=== PATIENT | male | born 1940 | race Caucasian/White ===

== ENCOUNTER 2018-03-17 12:44 | Inpatient (IN) | payer MEDICARE, OTHER ==
[~2018-03-17] VITALS: Ht 180.3 cm; Wt 62.8 kg
[2018-03-17 15:53] VITALS: BP 187/77; PULSE 57; RESP 17; TEMP 97.8; O2SAT 96
[2018-03-17] MEDS ORDERED: ASPI-516 CHEW (17:11)
[2018-03-17] MEDS ORDERED: GABA300C5 PO (17:14)
[2018-03-17] MEDS ORDERED: METO25TA3 PO (17:16)
[2018-03-17] MEDS ORDERED: LISI10TA3 PO (17:18)
[2018-03-17] MEDS ORDERED: NICO21DI2 T-DERMAL (17:19)
[2018-03-17] MEDS ORDERED: METF500T PO (17:19)
[2018-03-17] MEDS ORDERED: ASPI1POW (17:20)
[2018-03-17] MEDS ORDERED: diphenhydrAMINE HCL 50 MG CAP PO PRN (17:45)
[2018-03-17] MEDS ORDERED: MAGNESIUM HYDROXIDE SUSP 30 ML CUP PO PRN (17:45)
[2018-03-17] MEDS ORDERED: PILL SPLITTER OTHER PRN (17:45)
[2018-03-17] MEDS ORDERED: LORazepam 2 MG/ML VIAL IM PRN (17:45)
[2018-03-17] MEDS ORDERED: LORazepam 0.5 MG TAB PO PRN (17:45)
[2018-03-17] MEDS ORDERED: ALUMINUM/MAGNESIUM/SIMETH 30 ML CUP PO PRN (17:45)
[2018-03-17 21:00] VITALS: BP 181/77; PULSE 58; RESP 20
[2018-03-17] MEDS: METOPROLOL TARTRATE 25 MG TAB PO SCH (21:17)
[2018-03-17] MEDS: GABAPENTIN 300 MG CAP PO SCH (21:17)
[2018-03-17 23:00] VITALS: BP 146/78; PULSE 60; RESP 18
[2018-03-18 04:00] VITALS: BP 143/63; PULSE 55; RESP 18; TEMP 98; O2SAT 95
[2018-03-18 07:29] LABS: BICARBONATE 28.6 MEQ/L (21.0-32.0); BLOOD UREA NITROGEN 21 MG/DL (7-18); CALCIUM 9.2 MG/DL (8.5-10.1); CHLORIDE 106 MEQ/L (98-107); CHOLESTEROL 223 MG/DL (120-200); CREATININE 1.54 MG/DL (0.60-1.30); GLOMERULAR FILTRATION RATE 44 ML/MIN (>89); GLUCOSE,RANDOM 79 MG/DL (74-106); SODIUM (NA) 142 MEQ/L (136-145); TRIGLYCERIDES 152 MG/DL (42-150)
[2018-03-18 07:39] LABS: CHOLESTEROL/ HDL RATIO 6.31 RATIO; HDL CHOLESTEROL 35.3 MG/DL (40.0-60.0); LDL CHOLESTEROL 157 MG/DL (0-99)
[2018-03-18] MEDS ORDERED: metFORMIN HCL 500 MG TAB PO SCH (09:00)
[2018-03-18] MEDS: LISINOPRIL 10 MG TAB PO SCH (09:36)
[2018-03-18] MEDS: GABAPENTIN 300 MG CAP PO SCH ×2 (09:36→21:24)
[2018-03-18] MEDS: ASPIRIN 81 MG CHEW TAB CHEW SCH (09:36)
[2018-03-18] MEDS: METOPROLOL TARTRATE 25 MG TAB PO SCH ×2 (09:36→21:00)
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
[2018-03-18] MEDS ORDERED: DEXTROSE 50% IN WATER 50 ML VIAL(D50) IV PUSH PRN (12:15)
[2018-03-18] MEDS ORDERED: GLUCAGON 1 MG/ML VIAL OTHER PRN (12:15)
--- NOTE | 2018-03-18 14:31 | PD.TTN ---
Patient Problems 1. Discharge planning 2. Medication compliance 3. Knowledge deficit 4. Lack of coping skills Progress Toward Goals Provider Present: Dr. Staci Mcknight Provider Input: New Admission Nurse(s) Present: JANETH Amos Nurse(s) Input: Appropiate with staff Psychiatric Counselors Present: Radha Marsh LCSW, Suha Tirado, [facility], [facility], Jagjit Mcdermott Jr., [facility] Psych Therapist Input: Homocidal/ Suicidal Group Spec/RT/OT/DANIEL Present: ALONDRA Pineda Group Spec/RT/OT/DANIEL Input: New Admission Discharge Plan To be determined Documentation Scribe: Milagro Franks March 18, 2018 14:31
[2018-03-18 16:14] LABS: HEMOGLOBIN A1C 5.8 % (4.3-6.0)
[2018-03-18] MEDS: INSULIN ASPART SUPPLEMENTAL SCALE SQ SCH ×2 (17:00→21:00)
--- NOTE | 2018-03-18 17:02 | EKG ---
Date Performed: 03/18/2018 Time Performed: 14:48:33 PTAGE: 77 years EKG: SINUS BRADYCARDIA BORDERLINE ECG NO PREVIOUS TRACING DOCTOR: Erasmo Rizo Interpretating Date/Time 03/18/2018 17:01:24
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
[2018-03-18 19:03] LABS: FOLATE 19.3 NG/ML (3.1-17.5)
[2018-03-18 20:13] LABS: ALBUMIN 4.2 GM/DL (3.4-5.0); DIRECT BILIRUBIN ADULT 0.1 MG/DL (0.0-0.2)
[2018-03-18 20:14] LABS: INDIRECT BILIRUBIN 0.4 MG/DL (0.0-0.8); TOTAL BILIRUBIN ADULT 0.5 MG/DL (0.2-1.0); TOTAL PROTEIN 8.1 GM/DL (6.4-8.2)
--- NOTE | 2018-03-18 21:13 | RADRPT ---
EXAM DATE/TIME: 03/18/2018 20:17 [place] COMPARISON: No previous studies available for comparison. INDICATIONS : Altered mental status. RADIATION DOSE: 45.96 CTDIvol (mGy) MEDICAL HISTORY : Dementia. SURGICAL HISTORY : None. ENCOUNTER: Initial ACUITY: 1 day PAIN SCALE: 0/10 LOCATION: cranial TECHNIQUE: Multiple contiguous axial images were obtained of the head. Using automated exposure control and adj ustment of the mA and/or kV according to patient size, radiation dose was kept as low as reasonably a chievable to obtain optimal diagnostic quality images. DICOM format image data is available electro nically for review and comparison. FINDINGS: CEREBRUM: The ventricles are normal for age. There is an old lacunar infarct at the right caudate head. There is decreased density in the periventricular white matter. No evidence of midline shift, mass lesion, hemorrhage or acute infarction. No extra-axial fluid collections are seen. POSTERIOR FOSSA: The cerebellum and brainstem are intact. The 4th ventricle is midline. The cerebellopontine angle i s unremarkable. EXTRACRANIAL: The visualized portion of the orbits is intact. SKULL: The calvaria is intact. No evidence of skull fracture. CONCLUSION: 1. No acute intracranial abnormality seen. 2. 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 3. Suspected small vessel ischemic change in the white matter. Dereck Kaufman MD on March 18, 2018 at 21:09 Board Certified Radiologist. This report was verified electronically.
[2018-03-18 21:15] VITALS: BP 137/60; PULSE 50; RESP 14
[2018-03-19 02:03] VITALS: BP 137/60; PULSE 50; RESP 14
[2018-03-19 06:34] VITALS: BP 156/67; PULSE 55; RESP 18; TEMP 97.8; O2SAT 97
[2018-03-19] MEDS: INSULIN ASPART SUPPLEMENTAL SCALE SQ SCH ×2 (08:00→12:00)
[2018-03-19] MEDS: GABAPENTIN 300 MG CAP PO SCH ×2 (08:45→20:33)
[2018-03-19] MEDS: METOPROLOL TARTRATE 25 MG TAB PO SCH ×2 (08:45→20:33)
[2018-03-19] MEDS: LISINOPRIL 10 MG TAB PO SCH (08:45)
[2018-03-19] MEDS: ASPIRIN 81 MG CHEW TAB CHEW SCH (08:45)
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
--- NOTE | 2018-03-19 15:27 | HHI.PR ---
Subjective Remarks Follow up on patient with HTN, bradycardia, HLD. Patient seen and examined. Patient denies any acute medical complaints. Wants to know when he can go home. Denies any fever or chills. Denies any chest pain or dyspnea. Denies any N/V or abdominal pain. Denies any dysuria or diarrhea. Discussed with nursing staff, no acute issues noted. Objective Vitals Vital Signs Date Time Temp Pulse Resp B/P (MAP) Pulse Ox O2 Delivery O2 Flow Rate FiO2 03/19/18 06:34 97.8 55 18 156/67 (96) 97 03/19/18 02:03 03/19/18 02:03 50 14 137/60 (85) 03/18/18 21:15 50 14 137/60 (85) 03/18/18 21:15 50 14 137/60 (85) 03/18/18 21:15 50 14 137/60 (85) I/O 03/18/18 03/18/18 03/18/18 03/19/18 03/19/18 03/19/18 07:00 15:00 23:00 07:00 15:00 23:00 Intake Total 240 ml 240 ml Balance 240 ml 240 ml Intake Oral 240 ml 240 ml Result Diagram: 03/18/18 0559 Imaging Last Impressions Head CT 03/18/18 0000 Signed Impressions: Service Date/Time: Sunday, March 18, 2018 20:17 - CONCLUSION: 1. No acute intracranial abnormality seen. 2. 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 3. Suspected small vessel ischemic change in the white matter. Dereck Kaufman MD Objective Remarks GENERAL: This is a well-nourished, well-developed elderly male patient, in no apparent distress. Awake and alert. Hard of hearing. Sitting in chair in hallway. SKIN: Warm and dry. No rash. HEAD: Atraumatic. Normocephalic. EYES: Extraocular motions intact. No scleral icterus. No injection or drainage. ENT: Nose without bleeding or purulent drainage. +hearing aides both ears. Airway patent. MMM. NECK: Trachea midline. CARDIOVASCULAR: Regular rate and rhythm without murmurs, gallops, or rubs. RESPIRATORY: Nonlabored. Clear to auscultation. Breath sounds equal bilaterally. No wheezes, rales, or rhonchi. GASTROINTESTINAL: Abdomen soft, non-tender, nondistended. MUSCULOSKELETAL: Extremities without clubbing, cyanosis, or edema. No calf tenderness. NEUROLOGICAL: Awake and alert. Cranial nerves II through XII grossly intact. Motor and sensory grossly within normal limits. Normal speech. PSYCHIATRIC: Calm and cooperative Medications and IVs Current Medications Medications (Trade) Dose Ordered Sig/Tasia Route Start Time Stop Time Status Last Admin (Tylenol) 650 mg Q4H PRN PO 03/17/18 17:45 (Milk Of Magnesia Liq) 30 ml DAILY PRN PO 03/17/18 17:45 (Mag-Al Plus Susp Liq) 30 ml Q6H PRN PO 03/17/18 17:45 (Aspirin Chew) 81 mg DAILY CHEW 03/18/18 09:00 03/19/18 08:45 (Neurontin) 300 mg BID PO 03/17/18 21:00 03/19/18 08:45 (Prinivil) 10 mg DAILY PO 03/18/18 09:00 03/19/18 08:45 (Glucophage) 500 mg DAILY PO 03/18/18 09:00 Future Hold (Lopressor) 12.5 mg BID PO 03/17/18 21:00 03/19/18 08:45 (Pill Splitter) 1 ea UNSCH PRN OTHER 03/17/18 17:45 (Melatonin) 5 mg HS PRN PO 03/18/18 21:00 (D50w (Vial) Inj) 50 ml UNSCH PRN IV PUSH 03/18/18 12:15 (Glucagon Inj) 1 mg UNSCH PRN OTHER 03/18/18 12:15 (NovoLOG SUPPLEMENTAL SCALE) 1 ACHS SLIDING SCALE SQ 03/18/18 17:00 (Lipitor) 40 mg DAILY PO 03/20/18 09:00 (Remeron) 7.5 mg HS PO 03/19/18 21:00 A/P Assessment and Plan 77yo male with PMHX significant for dementia, HTN, HLD and DM who was transferred from [facility] under a Rg act alleging that he threatened to shoot himself with a gun. Patient has been admitted to inpatient psychiatry and hospitalist services have been consulted for medical management. Dementia with behavioral disturbance -Management per psychiatric team Hypertension -continue on Lisinopril -may need to change antihypertensive depending on kidney fxn -monitor BP Bradycardia, mild, asymptomatic EKG with sinus eduardo, QTc 447 -TSH WNL -continue on Lopressor with hold parameters HLD TG 152, Chol 223, LDL 157 -LFTs WNL. Discussed initiation of statin therapy. Patient agreeable. Begin Lipitor 40mg daily -patient will need to follow up with PCP to have lipid profile redrawn in 6- 8 weeks ?DM, patient states he was previously on Metformin but was taken off HgbA1c 5.8 -blood sugars running mid to low 100s off of Metformin -discontinue Metformin -d/c accucheks and ISS ?RUBENS on CKD No baseline labs for comparison Creatinine 1.54, GFR 44, BUN 21 -avoid nephrotoxic agents. -follow trend -encourage po intake -repeat BMP in am DVT prophylaxis -patient is ambulatory Patient appears stable from hospitalist standpoint. Will sign off. Please reconsult [facility] if needed. Barby Delgado March 19, 2018 15:27
[2018-03-19 18:10] VITALS: BP 137/63; PULSE 50; RESP 17; TEMP 97.8; O2SAT 96
[2018-03-19 18:29] LABS: BICARBONATE 30.2 MEQ/L (21.0-32.0); CREATININE 1.67 MG/DL (0.60-1.30)
[2018-03-19] MEDS: ACETAMINOPHEN 325 MG TAB PO PRN (20:32)
[2018-03-19] MEDS: MIRTAZAPINE 15 MG TAB PO SCH (20:33)
[2018-03-20 05:52] VITALS: BP 111/55; PULSE 60; RESP 16; TEMP 97.7; O2SAT 97
[2018-03-20 08:34] VITALS: BP 137/56; PULSE 50; O2SAT 97
[2018-03-20] MEDS: ATORVASTATIN 40 MG TAB PO SCH (09:18)
[2018-03-20] MEDS: METOPROLOL TARTRATE 25 MG TAB PO SCH ×2 (09:18→21:27)
[2018-03-20] MEDS: ASPIRIN 81 MG CHEW TAB CHEW SCH (09:18)
[2018-03-20] MEDS: GABAPENTIN 300 MG CAP PO SCH ×2 (09:18→21:28)
[2018-03-20] MEDS: LISINOPRIL 10 MG TAB PO SCH (09:19)
--- NOTE | 2018-03-20 12:26 | PD.PSY.CON ---
Provisional Diagnosis Admission Date March 17, 2018 at 15:46 [place] I. 1. Dementia, likely of the Alzheimer type, with behavioral disturbance 2. Rule out comorbid depressive disorder or perhaps adjustment reaction with depressed mood [place] II. Deferred History of Present Illness Service Psychiatry Consult Requested By Psychiatry Reason for Consult For second opinion Primary Care Physician Unknown HPI Mr. Jones is a 77-year-old male with a history of dementia who presents in transfer from [facility] under a Rg act alleging that he threatened to shoot himself with a gun. Documentation from outside hospital reviewed. Reviewing the electronic medical record, I note that this is patient' s first visit to [facility].Patient seen and examined. Chart reviewed. Case discussed with nursing staff. Patient noted to have been no behavioral problem overnight. On my examination today, patient presents as confused. MOCA is 13/ 30 with prominent deficits in delayed recall, executive function, and language. On my examination today, patient reports that he pulled out a gun in the context of an argument with his . He denies threatening to shoot himself with it. He tells me that he "brought it out to see if she would calm down." He says that they were arguing because he believes that his is financially exploiting him. He believes that she has taken on the order of $1,000 within the last year. Unclear if this concern is reality based. I can elicit no delusions or potential delusions otherwise. He denies AVH. He denies suicidal or homicidal ideation. He does admit to feeling somewhat depressed lately secondary to his concerns about his . Along with low mood he describes some sleep and appetite disturbance as well as some feelings of hopelessness. I can elicit no hypomanic or manic symptoms. Remainder of the psychiatric ROS is negative. No acute physical complaints. The patient is a 69-year-old man, domiciled his , with psychiatric history of dementia with behavioral disturbances, previous psychiatric hospitalizations, he denies suicidal attempts, hospitalized on the Rg act due to a alleged suicidal ideation with a plan of shooting himself with a gun. Patient consulted to me for second opinion. On psychiatric evaluation today the patient is calm, cooperative. Patient reports that he does not really understand what is the reason he is here. He reports good mood , denies depression, he denies suicidal enemas ideation, he denies visual and auditory hallucinations. Patient is quite confused, just partially oriented in time and place. No behavioral dysregulation, agitation, aggressive behavior observed or reported. Compliant with medications, no significant side effects. Past Family Social History Coded Allergies: iodine (Verified Allergy, Unknown, 03/17/18) Reported Medications Aspirin/Caffeine (Bc Arthritis Powder Packet) 1,000 Mg-65 Mg Powd.pack, 1000 03/17/18 Nicotine Patch (Nicotine Patch) 21 Mg/24 Hr Patch, 21 MG T-DERMAL DAILY for Smoking Cessation, #30 PATCH 0 Refills 03/17/18 Metformin (Metformin) 500 Mg Tab, 500 MG PO DAILY for Blood Sugar Management, # 30 TAB 0 Refills With a meal 03/17/18 Lisinopril (Lisinopril) 10 Mg Tab, 10 MG PO DAILY, #30 TAB 0 Refills 03/17/18 Metoprolol Tartrate (Metoprolol Tartrate) 25 Mg Tab, 12.5 MG PO BID, #30 TAB 0 Refills 03/17/18 Gabapentin (Gabapentin) 300 Mg Cap, 300 MG PO BID, #60 CAP 0 Refills 03/17/18 Aspirin (Aspirin) 81 Mg Chew, 81 MG CHEW DAILY, TAB 0 Refills 03/17/18 Current Medications Medications (Trade) Dose Ordered Sig/Tasia Route Start Time Stop Time Status Last Admin (Tylenol) 650 mg Q4H PRN PO 03/17/18 17:45 03/19/18 20:32 (Milk Of Magnesia Liq) 30 ml DAILY PRN PO 03/17/18 17:45 (Mag-Al Plus Susp Liq) 30 ml Q6H PRN PO 03/17/18 17:45 (Aspirin Chew) 81 mg DAILY CHEW 03/18/18 09:00 03/20/18 09:18 (Neurontin) 300 mg BID PO 03/17/18 21:00 03/20/18 09:18 (Prinivil) 10 mg DAILY PO 03/18/18 09:00 03/20/18 09:19 (Lopressor) 12.5 mg BID PO 03/17/18 21:00 03/20/18 09:18 (Pill Splitter) 1 ea UNSCH PRN OTHER 03/17/18 17:45 (Melatonin) 5 mg HS PRN PO 03/18/18 21:00 (D50w (Vial) Inj) 50 ml UNSCH PRN IV PUSH 03/18/18 12:15 (Glucagon Inj) 1 mg UNSCH PRN OTHER 03/18/18 12:15 (Lipitor) 40 mg DAILY PO 03/20/18 09:00 03/20/18 09:18 (Remeron) 7.5 mg HS PO 03/19/18 21:00 03/19/18 20:33 Patient's Strengths (min. 2) In a monitored setting. Verbally fluent. Physical Exam Vital Signs Vital Signs Date Time Temp Pulse Resp B/P (MAP) Pulse Ox O2 Delivery O2 Flow Rate FiO2 03/20/18 08:34 50 137/56 (83) 97 03/20/18 05:52 97.7 16 I/O 03/20/18 03/20/18 03/21/18 08:00 16:00 00:00 Intake Total 0 ml Balance 0 ml Lab Results Test 03/19/18 17:14 Blood Urea Nitrogen 38 MG/DL Creatinine 1.67 MG/DL Random Glucose 109 MG/DL Calcium Level 9.0 MG/DL Sodium Level 139 MEQ/L Potassium Level 4.3 MEQ/L Chloride Level 100 MEQ/L Carbon Dioxide Level 30.2 MEQ/L Anion Gap 9 MEQ/L Estimat Glomerular Filtration Rate 40 ML/MIN Mental Status Examination Appearance: Appropriate Consciousness: Alert Orientation: Person, Place (At least) Motor Activity: Normal gait, Other (No motor abnormalities noted) Speech: Unremarkable Language: Adequate Fund of Knowledge: Inadequate Attention and Concentration: Other (fair) Memory: Impaired Mood: Other (Dysphoric) Affect: Other (Tearful) Thought Process & Associations: Circumstantial Thought Content: Preoccupations Hallucination Type: None Delusion Type: None Suicidal Ideation: No Homicidal Ideation: No Insight: Poor Judgment: Poor Assessment & Plan Problem List: (1) Dementia of Alzheimer's type with behavioral disturbance ICD Codes: G30.9 - Alzheimer's disease, unspecified; F02.81 - Dementia in other diseases classified elsewhere with behavioral disturbance Assessment & Plan: I have seen and examined this patient, reviewed documentation, I agree and concur with Dr. Mcknight assessment and plan. (2) Depressive disorder ICD Codes: F32.9 - Major depressive disorder, single episode, unspecified Assessment & Plan Estimated LOS: days Request HC Surrog/Guard Advoc?: Yes Problem Qualifiers (1) Dementia of Alzheimer's type with behavioral disturbance: Qualified Codes: G30.8 - Other Alzheimer's disease; F02.81 - Dementia in other diseases classified elsewhere with behavioral disturbance Ryan Obrien MD March 20, 2018 12:26
--- NOTE | 2018-03-20 12:40 | HHI.PYPN ---
Subjective Chief Complaint: Dementia with behavioral disturbance Remarks Patient seen and examined with nurse. Chart reviewed. Case discussed with nursing staff. No behavioral issues noted overnight. Case discussed with counselor. On my examination today, patient's affect remains a little dysphoric and his general demeanor fairly downcast. Mild psychomotor slowing noted. Sleep reportedly somewhat poor overnight. He remains confused as at recent baseline. No SI or HI voiced. No side effects from medications. No physical complaints. Review of Systems ROS Limitations: Poor Historian Except as stated in HPI: all other systems reviewed are Neg Mental Status Examination Appearance: Appropriate Consciousness: Alert Orientation: Person Motor Activity: Other (No abnormal motor movements noted) Speech: Unremarkable Language: Adequate Fund of Knowledge: Inadequate Attention and Concentration: Other (fair) Memory: Impaired Mood: Other (Remains dysphoric) Affect: Other (Restricted) Thought Process & Associations: Circumstantial Thought Content: Preoccupations Hallucination Type: None Delusion Type: None Suicidal Ideation: No (No SI voiced) Homicidal Ideation: No (No HI voiced) Insight: Poor Judgment: Poor Results Labs Test 03/19/18 17:14 Blood Urea Nitrogen 38 MG/DL Creatinine 1.67 MG/DL Random Glucose 109 MG/DL Calcium Level 9.0 MG/DL Sodium Level 139 MEQ/L Potassium Level 4.3 MEQ/L Chloride Level 100 MEQ/L Carbon Dioxide Level 30.2 MEQ/L Anion Gap 9 MEQ/L Estimat Glomerular Filtration Rate 40 ML/MIN Labs reviewed. GFR stable. Mild hyperammonemia, likely of no clinical consequence. Vitamin D level is somewhat low. Last Impressions Head CT 03/18/18 0000 Signed Impressions: Service Date/Time: Sunday, March 18, 2018 20:17 - CONCLUSION: 1. No acute intracranial abnormality seen. 2. 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 3. Suspected small vessel ischemic change in the white matter. Dereck Kaufman MD Vitals/IOs Vital Signs Date Time Temp Pulse Resp B/P (MAP) Pulse Ox O2 Delivery O2 Flow Rate FiO2 03/20/18 08:34 50 137/56 (83) 97 03/20/18 05:52 97.7 16 Intake and Output 03/20/18 03/20/18 03/21/18 08:00 16:00 00:00 Intake Total 0 ml Balance 0 ml Assessment & Plan Problem List: (1) Dementia of Alzheimer's type with behavioral disturbance ICD Codes: G30.9 - Alzheimer's disease, unspecified; F02.81 - Dementia in other diseases classified elsewhere with behavioral disturbance (2) Depressive disorder ICD Codes: F32.9 - Major depressive disorder, single episode, unspecified Assessment & Plan Continue Remeron as ordered. To consider further titration of this agent to target dysphoria. Continue to monitor on the inpatient unit. Continue other medications and care as ordered. Justification for Cont. Inpt. Risk for decompensation in less restrictive environment. Discharge Planning Counselor to work on placement Request HC Surrog/Guard Advoc?: Yes Problem Qualifiers (1) Dementia of Alzheimer's type with behavioral disturbance: Qualified Codes: G30.8 - Other Alzheimer's disease; F02.81 - Dementia in other diseases classified elsewhere with behavioral disturbance João Mcknight MD March 20, 2018 12:40
[2018-03-20] MEDS: MIRTAZAPINE 15 MG TAB PO SCH (21:28)
[2018-03-21 05:25] VITALS: BP 149/66; PULSE 45; RESP 16; TEMP 98.2; O2SAT 96
[2018-03-21 06:13] VITALS: BP 130/66; PULSE 68
[2018-03-21 08:21] VITALS: BP 112/52; PULSE 54
[2018-03-21] MEDS: LISINOPRIL 10 MG TAB PO SCH (08:22)
[2018-03-21] MEDS: METOPROLOL TARTRATE 25 MG TAB PO SCH ×2 (08:22→20:59)
[2018-03-21] MEDS: CHOLECALCIFEROL (VIT D3) 1000 UNIT TAB PO SCH (09:33)
[2018-03-21] MEDS: ASPIRIN 81 MG CHEW TAB CHEW SCH (09:33)
[2018-03-21] MEDS: GABAPENTIN 300 MG CAP PO SCH ×2 (09:33→21:00)
[2018-03-21] MEDS: ATORVASTATIN 40 MG TAB PO SCH (09:33)
--- NOTE | 2018-03-21 11:24 | HHI.PYPN ---
Subjective Chief Complaint: Dementia with behavioral disturbance Remarks Patient seen today in coverage for Dr. Mcknight, patient seen with nurse Ese, chart reviewed, patient compliant medications, patient calm pleasant with me no behavior problems, diffusely confused and disoriented. His functioning on his inability to contact his . For now continue treatment no change Review of Systems Except as stated in HPI: all other systems reviewed are Neg Mental Status Examination Appearance: Appropriate Consciousness: Alert Orientation: Person Motor Activity: Other (No abnormal motor movements noted) Speech: Unremarkable Language: Adequate Fund of Knowledge: Inadequate Attention and Concentration: Other (fair) Memory: Impaired Mood: Other (Remains dysphoric) Affect: Other (Restricted) Thought Process & Associations: Circumstantial Thought Content: Preoccupations Hallucination Type: None Delusion Type: None Suicidal Ideation: No (No SI voiced) Homicidal Ideation: No (No HI voiced) Insight: Poor Judgment: Poor Results Vitals/IOs Vital Signs Date Time Temp Pulse Resp B/P (MAP) Pulse Ox O2 Delivery O2 Flow Rate FiO2 03/21/18 08:21 54 112/52 (72) 03/21/18 05:25 98.2 16 96 Assessment & Plan Problem List: (1) Dementia of Alzheimer's type with behavioral disturbance ICD Codes: G30.9 - Alzheimer's disease, unspecified; F02.81 - Dementia in other diseases classified elsewhere with behavioral disturbance (2) Depressive disorder ICD Codes: F32.9 - Major depressive disorder, single episode, unspecified Assessment & Plan Estimated LOS: days patient continues diffusely confused and disoriented to the behavior problems, is focusing somewhat on his inability to reach his . For now continue treatment Justification for Cont. Inpt. At this time patient would decompensate a place to the lower level of care Discharge Planning To be determined Request HC Surrog/Guard Advoc?: Yes Problem Qualifiers (1) Dementia of Alzheimer's type with behavioral disturbance: Qualified Codes: G30.8 - Other Alzheimer's disease; F02.81 - Dementia in other diseases classified elsewhere with behavioral disturbance Dereck Yusuf MD March 21, 2018 11:24
[2018-03-21 20:55] VITALS: BP 128/59; PULSE 51
[2018-03-21] MEDS: MIRTAZAPINE 15 MG TAB PO SCH (21:00)
[2018-03-22 05:48] VITALS: BP 176/75; PULSE 50; RESP 16; TEMP 97.4; O2SAT 95
[2018-03-22 06:10] VITALS: BP_SYST 140; BP_SYST 158; BP_DIAS 70; BP_DIAS 78; PULSE 56; PULSE 98
[2018-03-22] MEDS: CHOLECALCIFEROL (VIT D3) 1000 UNIT TAB PO SCH (09:06)
[2018-03-22] MEDS: LISINOPRIL 10 MG TAB PO SCH (09:06)
[2018-03-22] MEDS: METOPROLOL TARTRATE 25 MG TAB PO SCH ×2 (09:06→20:54)
[2018-03-22] MEDS: GABAPENTIN 300 MG CAP PO SCH ×3 (09:06→20:53)
[2018-03-22] MEDS: ASPIRIN 81 MG CHEW TAB CHEW SCH (09:06)
[2018-03-22] MEDS: ATORVASTATIN 40 MG TAB PO SCH (09:06)
--- NOTE | 2018-03-22 12:13 | HHI.PYPN ---
Subjective Chief Complaint: Dementia with behavioral disturbance Remarks Patient was seen and case discussed with nursing. Patient is behaving well on the unit. Interview limited because he is hard of hearing. He is asking about discharge. When asked about his mood he takes his hand and pointed downwards. He denies suicidal or homicidal ideation intent or plan. Compliant with medications and behaving well on the unit Mental Status Examination Appearance: Appropriate Consciousness: Alert Orientation: Person, Place Motor Activity: Other (No abnormal motor movements noted) Speech: Unremarkable Language: Adequate Fund of Knowledge: Inadequate Attention and Concentration: Other (fair) Memory: Impaired Mood: Sad Affect: Other (Restricted) Thought Process & Associations: Circumstantial Thought Content: Preoccupations Hallucination Type: None Delusion Type: None Suicidal Ideation: No (No SI voiced) Homicidal Ideation: No (No HI voiced) Insight: Poor Judgment: Poor Results Vitals/IOs Vital Signs Date Time Temp Pulse Resp B/P (MAP) Pulse Ox O2 Delivery O2 Flow Rate FiO2 03/22/18 06:10 56 158/70 (99) 03/22/18 05:48 97.4 16 95 Intake and Output 03/22/18 03/22/18 03/23/18 08:00 16:00 00:00 Intake Total 1260 ml Balance 1260 ml Assessment & Plan Problem List: (1) Dementia of Alzheimer's type with behavioral disturbance ICD Codes: G30.9 - Alzheimer's disease, unspecified; F02.81 - Dementia in other diseases classified elsewhere with behavioral disturbance (2) Depressive disorder ICD Codes: F32.9 - Major depressive disorder, single episode, unspecified Assessment & Plan Continue current treatment plan Justification for Cont. Inpt. Patient would decompensate in a less restrictive setting Request HC Surrog/Guard Advoc?: Yes Problem Qualifiers (1) Dementia of Alzheimer's type with behavioral disturbance: Qualified Codes: G30.8 - Other Alzheimer's disease; F02.81 - Dementia in other diseases classified elsewhere with behavioral disturbance Sanjeev Grace DO March 22, 2018 12:13
[2018-03-22] MEDS: MIRTAZAPINE 15 MG TAB PO SCH (20:51)
[2018-03-22 20:56] VITALS: BP 143/60; PULSE 48; PULSE 60; RESP 22; TEMP 98.4; O2SAT 96
[2018-03-23 05:43] VITALS: BP 135/61; PULSE 46; RESP 16; TEMP 96.9; O2SAT 94
[2018-03-23 06:52] VITALS: BP 136/61; PULSE 52
[2018-03-23] MEDS: GABAPENTIN 300 MG CAP PO SCH ×2 (08:55→20:53)
[2018-03-23] MEDS: ASPIRIN 81 MG CHEW TAB CHEW SCH (08:55)
[2018-03-23] MEDS: CHOLECALCIFEROL (VIT D3) 1000 UNIT TAB PO SCH (08:55)
[2018-03-23] MEDS: LISINOPRIL 10 MG TAB PO SCH (08:55)
[2018-03-23] MEDS: METOPROLOL TARTRATE 25 MG TAB PO SCH ×2 (08:55→20:54)
[2018-03-23] MEDS: ATORVASTATIN 40 MG TAB PO SCH (08:56)
--- NOTE | 2018-03-23 11:34 | HHI.PYPN ---
Subjective Chief Complaint: Dementia with behavioral disturbance Remarks Patient was seen and case discussed with nursing. Interview limited by patient' s being hard of hearing. Patient said he was hearing voices to "get out of here." Spending most of his time in bed, internally preoccupied. No aggressive behavior. He is compliant with his medications. Metoprolol was held by medicine because of bradycardia Mental Status Examination Appearance: Appropriate Consciousness: Alert Orientation: Person, Place Motor Activity: Other (No abnormal motor movements noted) Speech: Unremarkable Language: Adequate Fund of Knowledge: Inadequate Attention and Concentration: Other (fair) Memory: Impaired Mood: Sad Affect: Other (Restricted) Thought Process & Associations: Circumstantial Thought Content: Preoccupations Hallucination Type: None Delusion Type: None Suicidal Ideation: No (No SI voiced) Homicidal Ideation: No (No HI voiced) Insight: Poor Judgment: Poor Results Vitals/IOs Vital Signs Date Time Temp Pulse Resp B/P (MAP) Pulse Ox O2 Delivery O2 Flow Rate FiO2 03/23/18 06:52 52 136/61 (86) 03/23/18 05:43 96.9 16 94 Intake and Output 03/23/18 03/23/18 03/24/18 08:00 16:00 00:00 Intake Total 0 ml Balance 0 ml Assessment & Plan Problem List: (1) Dementia of Alzheimer's type with behavioral disturbance ICD Codes: G30.9 - Alzheimer's disease, unspecified; F02.81 - Dementia in other diseases classified elsewhere with behavioral disturbance (2) Depressive disorder ICD Codes: F32.9 - Major depressive disorder, single episode, unspecified Assessment & Plan Continue current treatment plan Justification for Cont. Inpt. Patient would decompensate in a less restrictive setting Request HC Surrog/Guard Advoc?: Yes Problem Qualifiers (1) Dementia of Alzheimer's type with behavioral disturbance: Qualified Codes: G30.8 - Other Alzheimer's disease; F02.81 - Dementia in other diseases classified elsewhere with behavioral disturbance Sanjeev Grace DO March 23, 2018 11:34
[2018-03-23 17:53] VITALS: BP 127/84; PULSE 48; RESP 16; TEMP 97.9; O2SAT 99
[2018-03-23 20:30] VITALS: BP 146/70; PULSE 50
[2018-03-23] MEDS: MIRTAZAPINE 15 MG TAB PO SCH (20:53)
[2018-03-24 06:13] VITALS: BP 109/53; PULSE 46; RESP 18; TEMP 97.6; O2SAT 97
[2018-03-24] MEDS: METOPROLOL TARTRATE 25 MG TAB PO SCH (08:39)
[2018-03-24] MEDS: ATORVASTATIN 40 MG TAB PO SCH (08:40)
[2018-03-24] MEDS: CHOLECALCIFEROL (VIT D3) 1000 UNIT TAB PO SCH (08:41)
[2018-03-24] MEDS: LISINOPRIL 10 MG TAB PO SCH (08:41)
[2018-03-24] MEDS: GABAPENTIN 300 MG CAP PO SCH ×2 (08:41→20:54)
[2018-03-24] MEDS: ASPIRIN 81 MG CHEW TAB CHEW SCH (08:41)
--- NOTE | 2018-03-24 09:02 | HHI.PYPN ---
Subjective Chief Complaint: Dementia with behavioral disturbance Remarks Patient seen and examined with nurse. Chart reviewed. Case discussed with nursing staff. Nurse notes patient is spending a lot of time in bed, although he does come out of his room for meals. On my exam, patient remains depressed, reportedly due to his circumstance. He denies any SI. He denies any AVH. Remains confused as at recent baseline. Complains of some dizziness, particularly upon standing. I note metoprolol has been repeatedly held due to bradycardia. No other reported med side effects or physical complaints. Review of Systems ROS Limitations: Poor Historian Except as stated in HPI: all other systems reviewed are Neg Mental Status Examination Appearance: Appropriate Consciousness: Alert Orientation: Person, Date/Time (Mar, 2018) Motor Activity: Other (No motor abnormalities noted) Speech: Unremarkable Language: Adequate Fund of Knowledge: Inadequate Attention and Concentration: Other (fair) Memory: Impaired Mood: Sad Affect: Blunt Thought Process & Associations: Circumstantial Thought Content: Other (Poverty of thought) Hallucination Type: None Delusion Type: None Suicidal Ideation: No (No SI voiced) Homicidal Ideation: No (No HI voiced) Insight: Poor Judgment: Poor Results Labs Labs reviewed. No new labs. Vitals/IOs Vital Signs Date Time Temp Pulse Resp B/P (MAP) Pulse Ox O2 Delivery O2 Flow Rate FiO2 03/24/18 06:13 97.6 46 18 109/53 (71) 97 Assessment & Plan Problem List: (1) Dementia of Alzheimer's type with behavioral disturbance ICD Codes: G30.9 - Alzheimer's disease, unspecified; F02.81 - Dementia in other diseases classified elsewhere with behavioral disturbance (2) Depressive disorder ICD Codes: F32.9 - Major depressive disorder, single episode, unspecified Assessment & Plan Patient with bradycardia, complaining of dizziness, particularly upon arising. Hold metoprolol. Check orthostatic VS. Fall precautions. I counseled patient on safe standing procedures. Consult hospitalist for further management of bradycardia/hypertension medications. Continue Remeron as ordered for now, although we might consider titrating this medication to target dysphoria once medical issues have been addressed. Continue to monitor on the inpatient unit. Continue other medications and care as ordered. Justification for Cont. Inpt. Complicating condition. Risk for decompensation in less restrictive environment. Discharge Planning Placement Request HC Surrog/Guard Advoc?: Yes Problem Qualifiers (1) Dementia of Alzheimer's type with behavioral disturbance: Qualified Codes: G30.8 - Other Alzheimer's disease; F02.81 - Dementia in other diseases classified elsewhere with behavioral disturbance João Mcknight MD March 24, 2018 09:02
[2018-03-24 13:00] VITALS: BP_SYST 126; BP_SYST 129; BP_SYST 133; BP_DIAS 57; BP_DIAS 60; BP_DIAS 63
--- NOTE | 2018-03-24 15:20 | HHI.PR ---
Addendum to Inpatient Note Additional Information Received re-consult from psychiatry regarding metoprolol 12.5mg BID for BP. Patient's blood pressure is in the 120s and 130s systolic. Currently metoprolol is on hold. No need to use beta roxanne for BP for this patient. If needed in future, his providers can consider Amlodipine 5mg Qday in addition to Lisinopril which he is already on. Discussed with the attending psychiatrist. We will discontinue Metoprolol. Thank you. No Menchaca DO March 24, 2018 15:20
[2018-03-24 17:30] VITALS: BP 139/61; PULSE 94; RESP 18; TEMP 98; O2SAT 98
[2018-03-24] MEDS: MIRTAZAPINE 15 MG TAB PO SCH (20:54)
[2018-03-25 06:07] VITALS: BP 162/70; PULSE 47; RESP 14; TEMP 97.5; O2SAT 94
[2018-03-25] MEDS: ACETAMINOPHEN 325 MG TAB PO PRN ×2 (06:28→18:18)
[2018-03-25 06:39] VITALS: BP 140/68; PULSE 56
[2018-03-25] MEDS: ASPIRIN 81 MG CHEW TAB CHEW SCH (08:50)
[2018-03-25] MEDS: ATORVASTATIN 40 MG TAB PO SCH (08:50)
[2018-03-25] MEDS: CHOLECALCIFEROL (VIT D3) 1000 UNIT TAB PO SCH (08:51)
[2018-03-25] MEDS: GABAPENTIN 300 MG CAP PO SCH ×2 (08:51→20:58)
[2018-03-25] MEDS: LISINOPRIL 10 MG TAB PO SCH (08:51)
--- NOTE | 2018-03-25 09:49 | HHI.PYPN ---
Subjective Chief Complaint: Dementia with behavioral disturbance Remarks Patient seen and examined with nurse. Chart reviewed. Case discussed with nursing staff. Patient's hearing aid battery has malfunctioned and we are awaiting a replacement, somewhat limiting the interview. Nurse alerts me that patient reported fall overnight but also notes that the whole episode of the reported fall was witnessed by night nurse and the patient did not fall. Orthostatic vital signs reviewed with nurse, and patient is not experiencing orthostasis. Case discussed in treatment team. On my exam, patient presents as quite dysphoric and anhedonic. He denies SI/HI. He says that he is worried about his and dog. He does report to me that he took a fall, but the patient's report of the timing and location of this is identical to that provided by the nurse, and as noted above the patient did not fall. He does complain of some pain between his shoulder blades, which he relates to this episode. He also has a dry cough. I have asked the nurse to have the hospitalist follow up on both of these issues. No side effects from medications. No physical complaints. Review of Systems ROS Limitations: Hearing Impaired, Poor Historian Except as stated in HPI: all other systems reviewed are Neg Mental Status Examination Appearance: Appropriate Consciousness: Alert Orientation: Person Motor Activity: Other (No abnormal motor movements noted) Speech: Unremarkable Language: Adequate Fund of Knowledge: Inadequate Attention and Concentration: Other (Fair at best) Memory: Impaired Mood: Sad Affect: Other (Restricted) Thought Process & Associations: Circumstantial Thought Content: Other (Poverty of thought) Hallucination Type: None Delusion Type: None Suicidal Ideation: No (No SI voiced) Homicidal Ideation: No (No HI voiced) Insight: Poor Judgment: Poor Results Labs Labs reviewed Vitals/IOs Vital Signs Date Time Temp Pulse Resp B/P (MAP) Pulse Ox O2 Delivery O2 Flow Rate FiO2 03/25/18 06:39 56 140/68 (92) 03/25/18 06:07 97.5 14 94 Intake and Output 03/25/18 03/25/18 03/26/18 08:00 16:00 00:00 Intake Total 360 ml Balance 360 ml Assessment & Plan Problem List: (1) Dementia of Alzheimer's type with behavioral disturbance ICD Codes: G30.9 - Alzheimer's disease, unspecified; F02.81 - Dementia in other diseases classified elsewhere with behavioral disturbance (2) Depressive disorder ICD Codes: F32.9 - Major depressive disorder, single episode, unspecified Assessment & Plan Titrate Remeron to target ongoing dysphoria. Await hospitalist input regarding above issues. Recreation therapist will ensure the patient has batteries for his hearing aids. Continue to monitor on the inpatient unit. Continue other medications and care as ordered. Justification for Cont. Inpt. Medication changes. Risk for decompensation in less restrictive environment. Discharge Planning Placement. Case discussed with counselor. Request HC Surrog/Guard Advoc?: Yes Problem Qualifiers (1) Dementia of Alzheimer's type with behavioral disturbance: Qualified Codes: G30.8 - Other Alzheimer's disease; F02.81 - Dementia in other diseases classified elsewhere with behavioral disturbance João Mcknight MD March 25, 2018 09:49
--- NOTE | 2018-03-25 10:00 | PD.TTN ---
Patient Problems 1. Discharge planning 2. Medication compliance 3. Knowledge deficit 4. Lack of coping skills Progress Toward Goals Provider Present: Dr. Staci Mcknight Provider Input: New Admission Nurse(s) Present: JANETH Amos Nurse(s) Input: 03/18/18: Appropiate with staff Psychiatric Counselors Present: Radha Marsh LCSW, Suha Tirado, [facility], Jagjit Mcdermott Jr., [facility] Psych Therapist Input: 03/18/18: Homocidal/ Suicidal Group Spec/RT/OT/DANIEL Present: ALONDRA Pineda Group Spec/RT/OT/DANIEL Input: 03/18/18: New Admission Discharge Plan To be determined Documentation Scribe: Milagro Franks March 25, 2018 10:00
--- NOTE | 2018-03-25 13:30 | HHI.PR ---
Subjective Remarks Follow- up visit for HTN. Patient is seen and examined in room, in no acute distress. He is very hard of hearing, complaints of some shoulder pain. Denies any SOB, N/V/D, dizziness, or chest pain. Nurse reports a dry cough that is recently started. Patient reports he has a cough for many years, questionable as he is a poor historian. Objective Vitals Vital Signs Date Time Temp Pulse Resp B/P (MAP) Pulse Ox O2 Delivery O2 Flow Rate FiO2 03/25/18 06:39 56 140/68 (92) 03/25/18 06:07 97.5 47 14 162/70 (100) 94 03/24/18 17:30 98.0 94 18 139/61 (87) 98 I/O 03/24/18 03/24/18 03/24/18 03/25/18 03/25/18 03/25/18 07:00 15:00 23:00 07:00 15:00 23:00 Intake Total 1320 ml 480 ml Output Total 200 ml Balance 1120 ml 480 ml Intake Oral 1320 ml 480 ml Output Urine Total 200 ml # Voids 4 2 Imaging Last Impressions Head CT 03/18/18 0000 Signed Impressions: Service Date/Time: Sunday, March 18, 2018 20:17 - CONCLUSION: 1. No acute intracranial abnormality seen. 2. 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 3. Suspected small vessel ischemic change in the white matter. Dereck Kaufman MD Objective Remarks GENERAL: This is a well-nourished, well-developed elderly male patient, in no apparent distress. Awake and alert. Hard of hearing. HEAD: Atraumatic. Normocephalic. EYES: Extraocular motions intact. No scleral icterus. No injection or drainage. ENT: Nose without bleeding. Airway patent. NECK: Trachea midline. CARDIOVASCULAR: Regular rate and rhythm, 2/6 murmur, no gallops, or rubs. RESPIRATORY: Nonlabored. Clear to auscultation. Breath sounds equal bilaterally. No wheezes, rales, or rhonchi. GASTROINTESTINAL: Abdomen soft, non-tender, nondistended. MUSCULOSKELETAL: Extremities without clubbing, cyanosis, or edema. NEUROLOGICAL: Awake and alert. Cranial nerves II through XII grossly intact. Motor and sensory grossly within normal limits. Normal speech. A/P Assessment and Plan 77yo male with PMHX significant for dementia, HTN, HLD and DM who was transferred from [facility] under a Rg act alleging that he threatened to shoot himself with a gun. Patient has been admitted to inpatient psychiatry and hospitalist services have been consulted for medical management. Dementia with behavioral disturbance -Management per psychiatric team Hypertension, controlled Started on Lisinopril now with dry cough -DC Lisinopril, start hydralazine at low dose with parameters -monitor BP Bradycardia, mild, asymptomatic EKG with sinus eduardo, QTc 447 -TSH WNL -Hydralazine for BP control HLD TG 152, Chol 223, LDL 157 -LFTs WNL. - Continue Lipitor 40mg daily -patient will need to follow up with PCP to have lipid profile redrawn in 6- 8 weeks ?DM, patient states he was previously on Metformin but was taken off HgbA1c 5.8 -blood sugars running mid to low 100s off of Metformin -d/c accucheks and ISS ?RUBENS on CKD No baseline labs for comparison Creatinine 1.54, GFR 44, BUN 21 -avoid nephrotoxic agents. -encourage po intake -Recheck BMP in the AM Shoulder pain - Suspect OA, full ROM with no joint deformity, swelling, warmth or erythema noted - Tylenol PRN for pain DVT prophylaxis -patient is ambulatory Discussed with nurse. Everardo Torres March 25, 2018 13:30
[2018-03-25 17:59] VITALS: BP 113/56; PULSE 53; RESP 16; TEMP 97.4; O2SAT 96
[2018-03-25] MEDS: MIRTAZAPINE 15 MG TAB PO SCH (20:58)
[2018-03-25] MEDS: hydrALAZINE HCL 10 MG TAB PO SCH (22:02)
[2018-03-26 05:55] VITALS: BP 151/68; PULSE 50; RESP 20; TEMP 97.7; O2SAT 98
[2018-03-26 06:00] VITALS: BP 151/68; PULSE 56
[2018-03-26] MEDS: hydrALAZINE HCL 10 MG TAB PO SCH ×2 (06:03→22:00)
[2018-03-26] MEDS: ACETAMINOPHEN 325 MG TAB PO PRN (06:23)
[2018-03-26 09:14] LABS: BICARBONATE 26.8 MEQ/L (21.0-32.0); CALCIUM 9.1 MG/DL (8.5-10.1); CREATININE 1.88 MG/DL (0.60-1.30)
[2018-03-26] MEDS: CHOLECALCIFEROL (VIT D3) 1000 UNIT TAB PO SCH (09:36)
[2018-03-26] MEDS: GABAPENTIN 300 MG CAP PO SCH ×2 (09:36→20:10)
[2018-03-26] MEDS: ASPIRIN 81 MG CHEW TAB CHEW SCH (09:36)
[2018-03-26] MEDS: ATORVASTATIN 40 MG TAB PO SCH (09:37)
--- NOTE | 2018-03-26 09:51 | HHI.PYPN ---
Subjective Chief Complaint: Dementia with behavioral disturbance Remarks Patient seen and examined with nurse. Chart reviewed. Case discussed with nursing staff. On my examination today, the patient's affect seems a little brighter and he is more interactive. He is less ruminative on the circumstances of his presentation here. No psychotic material. Remains confused as at baseline. No side effects from medications. No physical complaints. Review of Systems ROS Limitations: Hearing Impaired, Poor Historian Except as stated in HPI: all other systems reviewed are Neg Mental Status Examination Appearance: Appropriate Consciousness: Alert Orientation: Person Motor Activity: Other (No abnormal motor movements noted) Speech: Unremarkable Language: Adequate Fund of Knowledge: Inadequate Attention and Concentration: Other (Fair at best) Memory: Impaired Mood: Sad Affect: Other (More reactive today) Thought Process & Associations: Circumstantial Thought Content: Other (Poverty of thought) Hallucination Type: None Delusion Type: None Suicidal Ideation: No (No SI voiced) Homicidal Ideation: No (No HI voiced) Insight: Poor Judgment: Poor Results Labs Test 03/26/18 07:23 Blood Urea Nitrogen 51 MG/DL Creatinine 1.88 MG/DL Random Glucose 73 MG/DL Calcium Level 9.1 MG/DL Sodium Level 140 MEQ/L Potassium Level 5.1 MEQ/L Chloride Level 105 MEQ/L Carbon Dioxide Level 26.8 MEQ/L Anion Gap 8 MEQ/L Estimat Glomerular Filtration Rate 35 ML/MIN Labs reviewed Vitals/IOs Vital Signs Date Time Temp Pulse Resp B/P (MAP) Pulse Ox O2 Delivery O2 Flow Rate FiO2 03/26/18 06:00 56 151/68 (95) 03/26/18 05:55 97.7 20 98 Assessment & Plan Problem List: (1) Dementia of Alzheimer's type with behavioral disturbance ICD Codes: G30.9 - Alzheimer's disease, unspecified; F02.81 - Dementia in other diseases classified elsewhere with behavioral disturbance (2) Depressive disorder ICD Codes: F32.9 - Major depressive disorder, single episode, unspecified Assessment & Plan Continue Remeron as ordered. Case discussed with hospitalist mid-level provider. Transfer patient to medical psychiatric unit for IV hydration as GFR is decreasing. Continue other medications and care as ordered. Justification for Cont. Inpt. Possible complicating condition. Risk for decompensation in less restrictive environment. Discharge Planning Placement. Rg court tomorrow. Request HC Surrog/Guard Advoc?: Yes Problem Qualifiers (1) Dementia of Alzheimer's type with behavioral disturbance: Qualified Codes: G30.8 - Other Alzheimer's disease; F02.81 - Dementia in other diseases classified elsewhere with behavioral disturbance João Mcknight MD March 26, 2018 09:51
--- NOTE | 2018-03-26 11:57 | HHI.PR ---
Subjective Remarks Follow-up visit for HTN, RUBENS on CKD. Spoke with nurse who does not report any acute concerns. Patient is seen and examined in his room, extremely hard of hearing. He denies any shortness of breath, cough, nausea, vomiting, diarrhea, dizziness, chest pain, or headache. Patient reports that he was told he had diabetes as well as kidney problems but this had resolved. He is a very poor historian. 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 No evidence of hydronephrosis, nephrolithiasis or suspicious lesions. Prostatomegaly Matthew Bennett MD Head CT 03/18/18 0000 Signed Impressions: Service Date/Time: Sunday, March 18, 2018 20:17 - CONCLUSION: 1. No acute intracranial abnormality seen. 2. 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 3. Suspected small vessel ischemic change in the white matter. Dereck Kaufman MD Objective Remarks GENERAL: This is a well-nourished, well-developed elderly male patient, in no apparent distress. Awake and alert. Hard of hearing. HEAD: Atraumatic. Normocephalic. EYES: Extraocular motions intact. No scleral icterus. No injection or drainage. ENT: Nose without bleeding. Dry mucous membranes and lips. Airway patent. NECK: Trachea midline. CARDIOVASCULAR: Regular rate and rhythm, 2/6 murmur, no gallops, or rubs. RESPIRATORY: Nonlabored. Clear to auscultation. Breath sounds equal bilaterally. No wheezes, rales, or rhonchi. GASTROINTESTINAL: Abdomen soft, non-tender, nondistended. MUSCULOSKELETAL: Extremities without clubbing, cyanosis, or edema. NEUROLOGICAL: Awake and alert. Cranial nerves II through XII grossly intact. Motor and sensory grossly within normal limits. Normal speech. A/P Assessment and Plan 77yo male with PMHX significant for dementia, HTN, HLD and DM who was transferred from [facility] under a Rg act alleging that he threatened to shoot himself with a gun. Patient has been admitted to inpatient psychiatry and hospitalist services have been consulted for medical management. Dementia with behavioral disturbance -Management per psychiatric team Hypertension, fluctuates Started on Lisinopril with subsequent dry cough -DC Lisinopril, on hydralazine at low dose with parameters -monitor BP Bradycardia, mild, asymptomatic EKG with sinus eduardo, QTc 447 -TSH WNL -Hydralazine for BP control HLD TG 152, Chol 223, LDL 157 -LFTs WNL. - Continue Lipitor 40mg daily -patient will need to follow up with PCP to have lipid profile redrawn in 6- 8 weeks ?DM, patient states he was previously on Metformin but was taken off HgbA1c 5.8 Hypoglycemia, am bS -blood sugars running mid to low 100s off of Metformin -FBS this AM 73, accu-checks to follow trend, patient asymptomatic CKD on RUBENS No baseline labs for comparison Creatinine 1.54, GFR 44, BUN 21 ([facility] in [place] labs completed 03/17) -avoid nephrotoxic agents. Metformin and lisinopril on hold -BMP this morning with worsening renal function. Creatinine 1.88, BUN 51, GFR 35. Mild hypokalemia at 5.1 -Suspect possible underlying chronic kidney disease along with dehydration is because of decreased renal function. Patient also appears dehydrated with dry mucous membranes and decreased skin turgor. -Renal/bladder ultrasound completed 03/26 reviewed parenchymal renal disease with hyperechoic renal cortex. No evidence of hydronephrosis, nephrolithiasis or suspected lesions. 6 mm cyst in right kidney noted per. -Discussed with , patient unlikely to be cooperative with oral hydration due to dementia. Will transfer patient to medical psychiatry unit for IV hydration. -NS @84/hr, monitor for fluid overload. No reported history of CHF -Recheck labs tomorrow if not improved consider nephrology consult. Shoulder pain - Suspect OA, full ROM with no joint deformity, swelling, warmth or erythema noted - Tylenol PRN for pain DVT prophylaxis -patient is ambulatory Discussed with nurse and Everardo Lee March 26, 2018 11:57
[2018-03-26] MEDS: SODIUM CHLOR 0.9% 1000 ML INJ 1,000 ML IV SCH (12:15)
--- NOTE | 2018-03-26 12:23 | RADRPT ---
EXAM DATE/TIME: 03/26/2018 11:37 [facility] COMPARISON: No previous studies available for comparison. INDICATIONS : Increased BUN/creatinine. MEDICAL HISTORY : Hypertension. Dementia. Diabetes. Hyperlipidemia. SURGICAL HISTORY : None. ENCOUNTER: Initial ACUITY: 1 day PAIN SCORE: 0/10 LOCATION: Bilateral flank MEASUREMENTS: RIGHT KIDNEY: 8.9 x 3.4 x 4.5 cm LEFT KIDNEY: 10.0 x 4.3 x 3.6 cm FINDINGS: The kidneys demonstrate a mild heterogeneous hyperechoic texture throughout the cortex. There is decr eased cortical medullary distinction. There is no evidence of hydronephrosis, suspicious masses or ne phrolithiasis. A 6 mm cyst is identified in the right kidney. Prostate is enlarged. 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 No evidence of hydronephrosis, nephrolithiasis or suspicious lesions. Prostatomegaly Matthew Bennett MD on March 26, 2018 at 12:19 Board Certified Radiologist. This report was verified electronically.
[2018-03-26] MEDS: MIRTAZAPINE 15 MG TAB PO SCH (20:10)
[2018-03-27] MEDS: SODIUM CHLOR 0.9% 1000 ML INJ 1,000 ML IV SCH (03:45)
[2018-03-27 06:00] VITALS: BP 140/68; PULSE 53; RESP 17; TEMP 97.7; O2SAT 97
[2018-03-27] MEDS: hydrALAZINE HCL 10 MG TAB PO SCH ×3 (06:00→20:56)
--- NOTE | 2018-03-27 08:18 | HHI.PR ---
Subjective Remarks Follow-up visit for HTN, RUBENS on CKD. Spoke with nurse who reports patient had IV placed late yesterday for IV hydration and 1 hour later pulled IV out. Looking back through EMR it appears that IV fluids did not get restarted until around 345 this morning. Patient is seen and examined resting in bed comfortably in no acute distress, extremely hard of hearing. He is a bit more talkative this morning and is discussing with me the fact that he has an old ankle injury making it difficult for him to go down steps carrying heavy items. He denies any fevers, chills, nausea, vomiting, diarrhea, constipation, headaches, dizziness, shortness of breath, chest pain or cough. 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 No evidence of hydronephrosis, nephrolithiasis or suspicious lesions. Prostatomegaly Matthew Bennett MD Head CT 03/18/18 0000 Signed Impressions: Service Date/Time: Sunday, March 18, 2018 20:17 - CONCLUSION: 1. No acute intracranial abnormality seen. 2. 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 3. Suspected small vessel ischemic change in the white matter. Dereck Kaufman MD Objective Remarks GENERAL: This is a well-nourished, well-developed elderly male patient, in no apparent distress. Awake and alert. Hard of hearing. HEAD: Atraumatic. Normocephalic. EYES: Extraocular motions intact. No scleral icterus. No injection or drainage. ENT: Nose without bleeding. Airway patent. NECK: Trachea midline. CARDIOVASCULAR: Regular rate and rhythm, 2/6 murmur, no gallops, or rubs. RESPIRATORY: Nonlabored. Clear to auscultation. Breath sounds equal bilaterally. No wheezes, rales, or rhonchi. GASTROINTESTINAL: Abdomen soft, non-tender, nondistended. Normoactive bowel sounds MUSCULOSKELETAL: Extremities without clubbing, cyanosis, or edema. NEUROLOGICAL: Awake and alert. Cranial nerves II through XII grossly intact. Motor and sensory grossly within normal limits. Normal speech. A/P Assessment and Plan 77yo male with PMHX significant for dementia, HTN, HLD and DM who was transferred from [facility] under a Rg act alleging that he threatened to shoot himself with a gun. Patient has been admitted to inpatient psychiatry and hospitalist services have been consulted for medical management. Dementia with behavioral disturbance -Management per psychiatric team Hypertension, fluctuates Started on Lisinopril with subsequent dry cough -Lisinopril DC'd, started on hydralazine 10 mg every 8 hours -Blood pressure this morning improved. Bradycardia, mild, asymptomatic EKG with sinus eduardo, QTc 447 -TSH WNL -Hydralazine for BP control -Asymptomatic HLD TG 152, Chol 223, LDL 157 -LFTs WNL. - Continue Lipitor 40mg daily -patient will need to follow up with PCP to have lipid profile redrawn in 6- 8 weeks ?DM, patient states he was previously on Metformin but was taken off HgbA1c 5.8 Hypoglycemia, am bS -blood sugars running mid to low 100s off of Metformin -Blood sugars stable ranging from 100-141. Will discontinue Accu-Cheks. CKD on RUBENS No baseline labs for comparison Creatinine 1.54, GFR 44, BUN 21 ([facility] in [place] labs completed 03/17) -avoid nephrotoxic agents. Metformin and lisinopril on hold -03/26 with worsening renal function. Creatinine 1.88, BUN 51, GFR 35. Mild hypokalemia at 5.1 -Suspect possible underlying chronic kidney disease along with dehydration is because of decreased renal function. Patient also appears dehydrated with dry mucous membranes and decreased skin turgor. -Renal/bladder ultrasound completed 03/26 reviewed parenchymal renal disease with hyperechoic renal cortex. No evidence of hydronephrosis, nephrolithiasis or suspected lesions. 6 mm cyst in right kidney noted per. -Currently on NS @84/hr, no fluid overload noted on exam. No reported history of CHF -Patient did not get IV fluids throughout entire night as he pulled out IV. -BMP collected around 2 today reviewed, improvement in creatinine back to likely his baseline. -We will allow fluid bag to finish then DC IV fluids and follow BMP on am, continue to encourage oral hydration. Shoulder pain - Suspect OA, full ROM with no joint deformity, swelling, warmth or erythema noted - Tylenol PRN for pain DVT prophylaxis -patient is ambulatory Discussed with nurse and Discharge Planning Possible discharge to [facility] late this week, or early next week pending psychiatric clearance as well. Everardo Torres March 27, 2018 08:18
--- NOTE | 2018-03-27 08:45 | HHI.PYPN ---
Subjective Chief Complaint: Dementia with behavioral disturbance Remarks Patient seen and examined with nurse. Chart reviewed. Case discussed with nursing staff. On my examination, patient seems to be in brighter spirits. Remains confused as before. No SI/HI. No side effects from medications. No physical complaints. Spoke with patient's with counselor and a neighbor of the 's after [address] this morning. We discuss discharge planning. Review of Systems ROS Limitations: Poor Historian Except as stated in HPI: all other systems reviewed are Neg Mental Status Examination Appearance: Appropriate Consciousness: Alert Orientation: Person Motor Activity: Other (No motor abnormalities noted) Speech: Unremarkable Language: Adequate Fund of Knowledge: Inadequate Attention and Concentration: Other (Fair at best) Memory: Impaired Mood: Sad Affect: Other (Fairly bright and reactive today) Thought Process & Associations: Circumstantial Thought Content: Other (Poverty of thought) Hallucination Type: None Delusion Type: None Suicidal Ideation: No (No SI voiced) Homicidal Ideation: No (No HI voiced) Insight: Poor Judgment: Poor Results Labs Labs reviewed. Vitals/IOs Vital Signs Date Time Temp Pulse Resp B/P (MAP) Pulse Ox O2 Delivery O2 Flow Rate FiO2 03/27/18 06:00 97.7 53 17 140/68 (92) 97 Intake and Output 03/27/18 03/27/18 03/28/18 08:00 16:00 00:00 Intake Total 360 ml Balance 360 ml Assessment & Plan Problem List: (1) Dementia of Alzheimer's type with behavioral disturbance ICD Codes: G30.9 - Alzheimer's disease, unspecified; F02.81 - Dementia in other diseases classified elsewhere with behavioral disturbance (2) Depressive disorder ICD Codes: F32.9 - Major depressive disorder, single episode, unspecified Assessment & Plan Continue Remeron as ordered. Case discussed with hospitalist. Patient is receiving IV fluids for mild decrease in GFR, although he likely has some degree of baseline renal impairment. Follow-up BMP. Continue to monitor on the inpatient unit. Continue other medications and care as ordered. Case presented to [employer] [address] and placed in continuance by the clockmaker for 4 weeks with to serve as health care surrogate. Justification for Cont. Inpt. Risk for decompensation in less restrictive environment Discharge Planning Placement Request HC Surrog/Guard Advoc?: Yes Problem Qualifiers (1) Dementia of Alzheimer's type with behavioral disturbance: Qualified Codes: G30.8 - Other Alzheimer's disease; F02.81 - Dementia in other diseases classified elsewhere with behavioral disturbance João Mcknight MD March 27, 2018 08:45
[2018-03-27] MEDS: GABAPENTIN 300 MG CAP PO SCH ×2 (10:23→20:56)
[2018-03-27] MEDS: ATORVASTATIN 40 MG TAB PO SCH (10:23)
[2018-03-27] MEDS: CHOLECALCIFEROL (VIT D3) 1000 UNIT TAB PO SCH (10:24)
[2018-03-27] MEDS: ASPIRIN 81 MG CHEW TAB CHEW SCH (10:24)
[2018-03-27 15:17] LABS: BICARBONATE 31.3 MEQ/L (21.0-32.0); CALCIUM 8.9 MG/DL (8.5-10.1); CREATININE 1.52 MG/DL (0.60-1.30)
[2018-03-27 18:07] VITALS: BP 164/77; PULSE 77; RESP 16; TEMP 97.7; O2SAT 98
[2018-03-27] MEDS: MIRTAZAPINE 15 MG TAB PO SCH (20:56)
[2018-03-27] MEDS: MELATONIN 5 MG TAB PO PRN (20:57)
[2018-03-28] MEDS: hydrALAZINE HCL 10 MG TAB PO SCH ×3 (05:47→20:51)
[2018-03-28 06:38] VITALS: BP 139/65; PULSE 54; RESP 16; TEMP 97.3; O2SAT 98
--- NOTE | 2018-03-28 08:07 | HHI.PR ---
Subjective Remarks Follow-up visit for HTN, RUBENS on CKD. Discussed with nurse this morning who reports uneventful night. Patient is seen and examined resting in bed comfortably in no acute distress, now with hearing aids. He denies any fevers, chills, nausea, vomiting, diarrhea, headaches, dizziness, shortness of breath, cough or chest pain. He does not report any acute concerns or complaints. Objective Vitals Vital Signs Date Time Temp Pulse Resp B/P (MAP) Pulse Ox O2 Delivery O2 Flow Rate FiO2 03/28/18 06:38 97.3 54 16 139/65 (89) 98 03/27/18 18:07 97.7 77 16 164/77 (106) 98 164/77 (106) I/O 03/27/18 03/27/18 03/27/18 03/28/18 03/28/18 03/28/18 06:59 14:59 22:59 06:59 14:59 22:59 Intake Total 360 ml 120 ml 1320 ml 0 ml Balance 360 ml 120 ml 1320 ml 0 ml Intake Oral 120 ml 1320 ml 0 ml Oral Supplement 360 ml # Voids 2 0 Result Diagram: 03/27/18 1404 Imaging Last Impressions Renal Ultrasound 03/26/18 0000 Signed Impressions: Service Date/Time: Monday, March 26, 2018 11:37 - CONCLUSION: Parenchymal renal disease with hyperechoic renal cortex. No evidence of hydronephrosis, nephrolithiasis or suspicious lesions. Prostatomegaly Matthew Bennett MD Head CT 03/18/18 0000 Signed Impressions: Service Date/Time: Sunday, March 18, 2018 20:17 - CONCLUSION: 1. No acute intracranial abnormality seen. 2. 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 3. Suspected small vessel ischemic change in the white matter. Dereck Kaufman MD Objective Remarks GENERAL: This is a well-nourished, well-developed elderly male patient, in no apparent distress. Awake and alert. HEAD: Atraumatic. EYES: Pupils equal round. No scleral icterus. No injection or drainage. ENT: Nose without bleeding. Airway patent. NECK: Trachea midline. CARDIOVASCULAR: Regular rate and rhythm, 2/6 murmur, no gallops, or rubs. RESPIRATORY: Nonlabored. Clear to auscultation. Breath sounds equal bilaterally. No wheezes, rales, or rhonchi. GASTROINTESTINAL: Abdomen soft, non-tender, nondistended. Normoactive bowel sounds MUSCULOSKELETAL: Extremities without clubbing, cyanosis, or edema. NEUROLOGICAL: Awake and alert. Cranial nerves II through XII grossly intact. Motor and sensory grossly within normal limits. Normal speech. A/P Assessment and Plan 77yo male with PMHX significant for dementia, HTN, HLD and DM who was transferred from [facility] under a Rg act alleging that he threatened to shoot himself with a gun. Patient has been admitted to inpatient psychiatry and hospitalist services have been consulted for medical management. Dementia with behavioral disturbance -Management per psychiatric team Hypertension, fluctuates Started on Lisinopril with subsequent dry cough -Lisinopril DC'd, started on hydralazine 10 mg every 8 hours -Blood pressure stable Bradycardia, mild, asymptomatic EKG with sinus eduardo, QTc 447 -TSH WNL -Hydralazine for BP control -Asymptomatic HLD TG 152, Chol 223, LDL 157 -LFTs WNL. - Continue Lipitor 40mg daily -patient will need to follow up with PCP to have lipid profile redrawn in 6- 8 weeks ?DM, patient states he was previously on Metformin but was taken off HgbA1c 5.8 Hypoglycemia, am bS -blood sugars running mid to low 100s off of Metformin -Blood sugars stable ranging from 100-141. Will discontinue Accu-Cheks. CKD on RUBENS No baseline labs for comparison Creatinine 1.54, GFR 44, BUN 21 ([facility] in [place] labs completed 03/17) -avoid nephrotoxic agents. Metformin and lisinopril on hold -03/26 with worsening renal function. Creatinine 1.88, BUN 51, GFR 35. Mild hypokalemia at 5.1 -Suspect possible underlying chronic kidney disease along with dehydration is because of decreased renal function. -Renal/bladder ultrasound completed 03/26 reviewed parenchymal renal disease with hyperechoic renal cortex. No evidence of hydronephrosis, nephrolithiasis or suspected lesions. 6 mm cyst in right kidney noted per. -Orders for 3 L NS to run at 84 mL's per hour, unsure if patient received entire treatment as only 2 bags scanned. -Patient did not get IV fluids throughout entire night as he pulled out IV. -Renal function from this morning reviewed, improved with BUN 34, creatinine 1.47, GFR 46. Discussed with nurse to continue to encourage oral hydration -Continue monitoring renal function periodically. Shoulder pain - Suspect OA, full ROM with no joint deformity, swelling, warmth or erythema noted - Tylenol PRN for pain DVT prophylaxis -patient is ambulatory Discussed with nurse. Discharge Planning Possible discharge to [facility] late this week, or early next week pending psychiatric clearance as well. Everardo Torres March 28, 2018 08:07
[2018-03-28 09:16] LABS: BICARBONATE 29.5 MEQ/L (21.0-32.0); CALCIUM 9.5 MG/DL (8.5-10.1); CREATININE 1.47 MG/DL (0.60-1.30)
[2018-03-28] MEDS: CHOLECALCIFEROL (VIT D3) 1000 UNIT TAB PO SCH (09:18)
[2018-03-28] MEDS: GABAPENTIN 300 MG CAP PO SCH ×2 (09:18→20:51)
[2018-03-28] MEDS: ATORVASTATIN 40 MG TAB PO SCH (09:18)
[2018-03-28] MEDS: ASPIRIN 81 MG CHEW TAB CHEW SCH (09:19)
--- NOTE | 2018-03-28 10:10 | PD.TTN ---
Patient Problems 1. Discharge planning 2. Medication compliance 3. Knowledge deficit 4. Lack of coping skills Progress Toward Goals Provider Present: Dr. Staci Mcknight Provider Input: 03/28/2018; per doctor patient is med compliant, no behavior, and is a possible dc New Admission Nurse(s) Present: RN Nurse(s) Input: 03/28/2018; per nurse patient is confused, with disorganized thoughts requires coaching with meds, compliant with meals 03/18/18: Appropiate with staff Psychiatric Counselors Present: Radha Marsh LCSW, Suha Tirado, [facility], Jagjit Mcdermott Jr., [facility], Akosua Abbott [facility] Psych Therapist Input: 03/28/2018 per assign SW patient is accepted at [facility] and is set to be dc either Saturday or Saturday of next week, pending bed readiness. 03/18/18: Homocidal/ Suicidal Group Spec/RT/OT/DANIEL Present: Milagro Conway, GPS, Sudeep Agudelo, OT Group Spec/RT/OT/DANIEL Input: 03/28/2018; patient has not been able to attend groups due to his level of confusion 03/18/18: New Admission Discharge Plan To be determined Documentation Scribe: Akosua Black CHUY March 28, 2018 10:10
--- NOTE | 2018-03-28 12:23 | HHI.PYPN ---
Subjective Chief Complaint: Dementia with behavioral disturbance Remarks Patient seen and examined. Chart reviewed. Case discussed with nursing staff. No behaviors noted. Case discussed in treatment team. Plan is for possible Saturday discharge to facility. On my examination today, the patient once again seems less dysphoric. No SI or HI. He does become somewhat upset when I endeavored to discuss with him the discharge plan. Reassurance provided. Remains confused as at baseline. No side effects from medications. No physical complaints. Review of Systems ROS Limitations: Poor Historian Except as stated in HPI: all other systems reviewed are Neg Mental Status Examination Appearance: Appropriate Consciousness: Alert Orientation: Person Motor Activity: Other (No abnormal motor movements noted) Speech: Unremarkable Language: Adequate Fund of Knowledge: Inadequate Attention and Concentration: Other (Fair at best) Memory: Impaired Mood: Appropriate Affect: Appropriate Thought Process & Associations: Circumstantial Thought Content: Other (Poverty of thought) Hallucination Type: None Delusion Type: None Suicidal Ideation: No (No SI voiced) Homicidal Ideation: No (No HI voiced) Insight: Poor Judgment: Poor Results Labs Test 03/27/18 14:04 03/28/18 07:29 Blood Urea Nitrogen 41 MG/DL 34 MG/DL Creatinine 1.52 MG/DL 1.47 MG/DL Random Glucose 99 MG/DL 72 MG/DL Calcium Level 8.9 MG/DL 9.5 MG/DL Sodium Level 141 MEQ/L 140 MEQ/L Potassium Level 5.0 MEQ/L 4.7 MEQ/L Chloride Level 107 MEQ/L 104 MEQ/L Carbon Dioxide Level 31.3 MEQ/L 29.5 MEQ/L Anion Gap 3 MEQ/L 7 MEQ/L Estimat Glomerular Filtration Rate 45 ML/MIN 46 ML/MIN Labs reviewed. GFR stable. Vitals/IOs Vital Signs Date Time Temp Pulse Resp B/P (MAP) Pulse Ox O2 Delivery O2 Flow Rate FiO2 03/28/18 06:38 97.3 54 16 139/65 (89) 98 Intake and Output 03/28/18 03/28/18 03/29/18 08:00 16:00 00:00 Intake Total 0 ml 360 ml Balance 0 ml 360 ml Assessment & Plan Problem List: (1) Dementia of Alzheimer's type with behavioral disturbance ICD Codes: G30.9 - Alzheimer's disease, unspecified; F02.81 - Dementia in other diseases classified elsewhere with behavioral disturbance (2) Depressive disorder ICD Codes: F32.9 - Major depressive disorder, single episode, unspecified Assessment & Plan Continue current psychotropics as ordered. Hospitalist input appreciated. Continue to monitor on the inpatient unit. Continue other medications and care as ordered. Justification for Cont. Inpt. Risk for decompensation in less restrictive setting. Discharge Planning Anticipate discharge to facility Saturday. Request HC Surrog/Guard Advoc?: Yes Problem Qualifiers (1) Dementia of Alzheimer's type with behavioral disturbance: Qualified Codes: G30.8 - Other Alzheimer's disease; F02.81 - Dementia in other diseases classified elsewhere with behavioral disturbance João Mcknight MD March 28, 2018 12:23
[2018-03-28 18:11] VITALS: BP 147/66; PULSE 86; RESP 16; TEMP 98.1; O2SAT 100
[2018-03-28] MEDS: MELATONIN 5 MG TAB PO PRN (20:50)
[2018-03-28] MEDS: MIRTAZAPINE 15 MG TAB PO SCH (20:51)
[2018-03-29] MEDS: hydrALAZINE HCL 10 MG TAB PO SCH ×3 (05:43→21:26)
[2018-03-29 06:00] VITALS: BP 162/68; PULSE 55; RESP 18; TEMP 97.9; O2SAT 94
--- NOTE | 2018-03-29 08:21 | HHI.PR ---
Subjective Remarks Follow-up visit for HTN, RUBENS, on CKD. Patient is seen and examined sitting up on the side of the bed eating breakfast morning in no acute distress. Nursing does not report any concerns overnight or this morning. 6 AM Apresoline held due to tachycardia. Patient denies any fevers, chills, nausea, vomiting, diarrhea, headaches, dizziness, shortness of breath or cough. He voices no complaints. Objective Vitals Vital Signs Date Time Temp Pulse Resp B/P (MAP) Pulse Ox O2 Delivery O2 Flow Rate FiO2 03/29/18 06:00 97.9 55 18 162/68 (99) 94 03/28/18 18:11 98.1 86 16 147/66 (93) 100 I/O 03/28/18 03/28/18 03/28/18 03/29/18 03/29/18 03/29/18 07:00 15:00 23:00 07:00 15:00 23:00 Intake Total 0 ml 720 ml 1080 ml Balance 0 ml 720 ml 1080 ml Intake Oral 0 ml 720 ml 1080 ml # Voids 0 Result Diagram: 03/28/18 0729 Imaging Last Impressions Renal Ultrasound 03/26/18 0000 Signed Impressions: Service Date/Time: Monday, March 26, 2018 11:37 - CONCLUSION: Parenchymal renal disease with hyperechoic renal cortex. No evidence of hydronephrosis, nephrolithiasis or suspicious lesions. Prostatomegaly Matthew Bennett MD Head CT 03/18/18 0000 Signed Impressions: Service Date/Time: Sunday, March 18, 2018 20:17 - CONCLUSION: 1. No acute intracranial abnormality seen. 2. 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 3. Suspected small vessel ischemic change in the white matter. Dereck Kaufman MD Objective Remarks GENERAL: This is a well-nourished, well-developed elderly male patient, in no apparent distress. Awake and alert. HEAD: Atraumatic. EYES: Pupils equal round. No scleral icterus. No injection or drainage. ENT: Nose without bleeding. Airway patent. NECK: Trachea midline. CARDIOVASCULAR: Regular rate and rhythm, 2/6 murmur, no gallops, or rubs. RESPIRATORY: Nonlabored. Clear to auscultation. Breath sounds equal bilaterally. No wheezes, rales, or rhonchi. GASTROINTESTINAL: Abdomen soft, non-tender, nondistended. Normoactive bowel sounds MUSCULOSKELETAL: Extremities without clubbing, cyanosis, or edema. NEUROLOGICAL: Awake and alert. Cranial nerves II through XII grossly intact. Motor and sensory grossly within normal limits. Normal speech. A/P Assessment and Plan 77yo male with PMHX significant for dementia, HTN, HLD and DM who was transferred from [facility] under a Rg act alleging that he threatened to shoot himself with a gun. Patient has been admitted to inpatient psychiatry and hospitalist services have been consulted for medical management. Dementia with behavioral disturbance -Management per psychiatric team Hypertension, fluctuates Started on Lisinopril with subsequent dry cough -Lisinopril DC'd, started on hydralazine 10 mg every 8 hours -BP elevated this morning, hydralazine held due to bradycardia. Discussed with nursing, late dose of hydralazine this morning. Bradycardia, mild, asymptomatic EKG with sinus eduardo, QTc 447 -TSH WNL -Hydralazine for BP control -Asymptomatic HLD TG 152, Chol 223, LDL 157 -LFTs WNL. - Continue Lipitor 40mg daily -patient will need to follow up with PCP to have lipid profile redrawn in 6- 8 weeks ?DM, patient states he was previously on Metformin but was taken off HgbA1c 5.8 Hypoglycemia, am bS -blood sugars running mid to low 100s off of Metformin -Blood sugars stable ranging from 100-141. Accu-Cheks have been discontinued. CKD on RUBENS No baseline labs for comparison Creatinine 1.54, GFR 44, BUN 21 ([facility] in [place] labs completed 03/17) -avoid nephrotoxic agents. Metformin and lisinopril on hold -03/26 with worsening renal function. Creatinine 1.88, BUN 51, GFR 35. Mild hypokalemia at 5.1 -Suspect possible underlying chronic kidney disease along with dehydration is because of decreased renal function. -Renal/bladder ultrasound completed 03/26 reviewed parenchymal renal disease with hyperechoic renal cortex. No evidence of hydronephrosis, nephrolithiasis or suspected lesions. 6 mm cyst in right kidney noted per. - s/p IV hydration -Renal function from this morning reviewed, improved with BUN 34, creatinine 1.47, GFR 46. Discussed with nurse to continue to encourage oral hydration -Continue monitoring renal function periodically. Shoulder pain - Suspect OA, full ROM with no joint deformity, swelling, warmth or erythema noted - Tylenol PRN for pain DVT prophylaxis -patient is ambulatory Discussed with Dr. Ramos and nurse. Discharge Planning Possible discharge to [facility] late this week, or early next week pending psychiatric clearance as well. Everardo Torres March 29, 2018 08:21
[2018-03-29] MEDS ORDERED: hydrALAZINE HCL 10 MG TAB PO ONE (08:30)
[2018-03-29] MEDS: ASPIRIN 81 MG CHEW TAB CHEW SCH (08:52)
[2018-03-29] MEDS: GABAPENTIN 300 MG CAP PO SCH ×2 (08:52→21:00)
[2018-03-29] MEDS: CHOLECALCIFEROL (VIT D3) 1000 UNIT TAB PO SCH (08:52)
[2018-03-29] MEDS: ATORVASTATIN 40 MG TAB PO SCH (08:52)
[2018-03-29 12:27] VITALS: BP 156/70; PULSE 68
--- NOTE | 2018-03-29 15:15 | HHI.PYPN ---
Subjective Chief Complaint: Dementia with behavioral disturbance Remarks Reviewed electronic medical record discussed case with staff. Follow-up was performed in room with nurse present. Nurse reports that patient has been compliant with medications. He will possibly be discharged on Saturday. She states that he still remains vague and superficial and attempt to cover his confusion. Patient advises that he has been sleeping well and has had a good appetite. He seems overly anxious about what is going to happen to him next. He is under the misconception that his psychiatrist is informed him that he will have to "stay here forever". I reassured him that this is not the case Mental Status Examination Appearance: Appropriate Consciousness: Alert Orientation: Person Motor Activity: Other (No abnormal motor movements noted) Speech: Unremarkable Language: Adequate Fund of Knowledge: Inadequate Attention and Concentration: Other (Fair at best) Memory: Impaired Mood: Appropriate Affect: Appropriate Thought Process & Associations: Circumstantial Thought Content: Other (Poverty of thought) Hallucination Type: None Delusion Type: None Suicidal Ideation: No (No SI voiced) Homicidal Ideation: No (No HI voiced) Insight: Poor Judgment: Poor Results Vitals/IOs Vital Signs Date Time Temp Pulse Resp B/P (MAP) Pulse Ox O2 Delivery O2 Flow Rate FiO2 03/29/18 12:27 68 156/70 (98) 03/29/18 06:00 97.9 18 94 Intake and Output 03/29/18 03/29/18 03/30/18 08:00 16:00 00:00 Intake Total 480 ml 960 ml Balance 480 ml 960 ml Assessment & Plan Problem List: (1) Dementia of Alzheimer's type with behavioral disturbance ICD Codes: G30.9 - Alzheimer's disease, unspecified; F02.81 - Dementia in other diseases classified elsewhere with behavioral disturbance (2) Depressive disorder ICD Codes: F32.9 - Major depressive disorder, single episode, unspecified Assessment & Plan Estimated LOS: Per liter documentation possible discharge on Saturday. His psychiatrist will be back to reevaluate at that time. Days Justification for Cont. Inpt. Moving this patient to a lower level of care would likely result in decompensation. Request HC Surrog/Guard Advoc?: Yes Problem Qualifiers (1) Dementia of Alzheimer's type with behavioral disturbance: Qualified Codes: G30.8 - Other Alzheimer's disease; F02.81 - Dementia in other diseases classified elsewhere with behavioral disturbance Maxine Pineda March 29, 2018 15:15
[2018-03-29 17:39] VITALS: BP 169/75; PULSE 56; RESP 16; TEMP 98.1; O2SAT 96
[2018-03-29] MEDS: MIRTAZAPINE 15 MG TAB PO SCH (21:00)
[2018-03-29] MEDS: MELATONIN 5 MG TAB PO PRN (21:27)
[2018-03-30 06:00] VITALS: BP 142/73; PULSE 63; RESP 16; TEMP 97; O2SAT 97
[2018-03-30] MEDS: hydrALAZINE HCL 10 MG TAB PO SCH (06:00)
--- NOTE | 2018-03-30 08:29 | HHI.PR ---
Subjective Remarks Follow-up visit for HTN, RUBENS, on CKD. Spoke with nurse who does not report any events overnight or this morning. Patient seen and examined sitting up in bed eating breakfast this morning in no acute distress. He denies any fevers, chills, nausea, vomiting, diarrhea, headaches, dizziness, shortness of breath, cough or dysuria. He has no acute complaints Objective Vitals Vital Signs Date Time Temp Pulse Resp B/P (MAP) Pulse Ox O2 Delivery O2 Flow Rate FiO2 03/29/18 17:39 98.1 56 16 169/75 (106) 96 03/29/18 12:27 68 156/70 (98) I/O 03/29/18 03/29/18 03/29/18 03/30/18 03/30/18 03/30/18 07:00 15:00 23:00 07:00 15:00 23:00 Intake Total 1440 ml 720 ml Balance 1440 ml 720 ml Intake Oral 1440 ml 720 ml # Voids 1 Result Diagram: 03/28/18 0729 Imaging Last Impressions Renal Ultrasound 03/26/18 0000 Signed Impressions: Service Date/Time: Monday, March 26, 2018 11:37 - CONCLUSION: Parenchymal renal disease with hyperechoic renal cortex. No evidence of hydronephrosis, nephrolithiasis or suspicious lesions. Prostatomegaly Matthew Bennett MD Head CT 03/18/18 0000 Signed Impressions: Service Date/Time: Sunday, March 18, 2018 20:17 - CONCLUSION: 1. No acute intracranial abnormality seen. 2. 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 3. Suspected small vessel ischemic change in the white matter. Dereck Kaufman MD Objective Remarks GENERAL: This is a well-nourished, well-developed elderly male patient, in no apparent distress. Awake and alert. HEAD: Atraumatic. EYES: Pupils equal round. No scleral icterus. No injection or drainage. ENT: Nose without bleeding. Airway patent. NECK: Trachea midline. CARDIOVASCULAR: Regular rate and rhythm, 2/6 murmur, no gallops, or rubs. RESPIRATORY: Nonlabored. Clear to auscultation. Breath sounds equal bilaterally. No wheezes, rales, or rhonchi. GASTROINTESTINAL: Abdomen soft, non-tender, nondistended. Normoactive bowel sounds MUSCULOSKELETAL: Extremities without clubbing, cyanosis, or edema. NEUROLOGICAL: Awake and alert. Cranial nerves II through XII grossly intact. Motor and sensory grossly within normal limits. Normal speech. A/P Assessment and Plan 77yo male with PMHX significant for dementia, HTN, HLD and DM who was transferred from [facility] under a Rg act alleging that he threatened to shoot himself with a gun. Patient has been admitted to inpatient psychiatry and hospitalist services have been consulted for medical management. Dementia with behavioral disturbance -Management per psychiatric team Hypertension, fluctuates Started on Lisinopril with subsequent dry cough -Lisinopril DC'd, started on hydralazine 10 mg every 8 hours -BP's still mildly elevated, will increase hydralazine to 25 mg every 8 hours. Bradycardia, mild, asymptomatic EKG with sinus eduardo, QTc 447 -TSH WNL -Hydralazine for BP control -Asymptomatic HLD TG 152, Chol 223, LDL 157 -LFTs WNL. - Continue Lipitor 40mg daily -patient will need to follow up with PCP to have lipid profile redrawn in 6- 8 weeks ?DM, patient states he was previously on Metformin but was taken off HgbA1c 5.8 Hypoglycemia, am bS -blood sugars running mid to low 100s off of Metformin -Blood sugars stable ranging from 100-141. Accu-Cheks have been discontinued. CKD on RUBENS No baseline labs for comparison Creatinine 1.54, GFR 44, BUN 21 ([facility] in [place] labs completed 03/17) -avoid nephrotoxic agents. Metformin and lisinopril on hold -03/26 with worsening renal function. Creatinine 1.88, BUN 51, GFR 35. Mild hypokalemia at 5.1 -Suspect possible underlying chronic kidney disease along with dehydration is because of decreased renal function. -Renal/bladder ultrasound completed 03/26 reviewed parenchymal renal disease with hyperechoic renal cortex. No evidence of hydronephrosis, nephrolithiasis or suspected lesions. 6 mm cyst in right kidney noted per. - s/p IV hydration -Renal function from this morning reviewed, improved with BUN 34, creatinine 1.47, GFR 46. -Continue encouraging oral hydration, renal function appears to be back to baseline, check periodically as needed. Shoulder pain - Suspect OA, full ROM with no joint deformity, swelling, warmth or erythema noted - Tylenol PRN for pain DVT prophylaxis -patient is ambulatory Discussed with nurse. Discharge Planning Possible discharge to [facility] late this week, or early next week pending psychiatric clearance as well. Everardo Torres March 30, 2018 08:29
[2018-03-30] MEDS: ASPIRIN 81 MG CHEW TAB CHEW SCH (08:52)
[2018-03-30] MEDS: GABAPENTIN 300 MG CAP PO SCH ×2 (08:52→21:28)
[2018-03-30] MEDS: ATORVASTATIN 40 MG TAB PO SCH (08:52)
[2018-03-30] MEDS: CHOLECALCIFEROL (VIT D3) 1000 UNIT TAB PO SCH (08:52)
[2018-03-30] MEDS: ACETAMINOPHEN 325 MG TAB PO PRN (09:02)
--- NOTE | 2018-03-30 09:23 | HHI.PYPN ---
Subjective Chief Complaint: Dementia with behavioral disturbance Remarks Chart reviewed and discussed with JANETH Handley. Patient is in his hospital bed. He is very emotional and crying. 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 He is missing his friends at the [employer] [employer]'s group in [place]. He states, " my situation is grim because I the wrong woman but I still have to live with her." When asked if he felt safe returning home and living with his , he replied "yes." He continues to be confused which is complicated because he is hard of hearing. Planning is in place to discharge him this week. Patient is medication compliant. Mental Status Examination Appearance: Appropriate Consciousness: Alert Orientation: Person Motor Activity: Other (No abnormal motor movements noted) Speech: Unremarkable Language: Adequate Fund of Knowledge: Inadequate Attention and Concentration: Other (Fair at best) Memory: Impaired Mood: Appropriate Affect: Appropriate Thought Process & Associations: Circumstantial Thought Content: Appropriate Hallucination Type: None Delusion Type: None Suicidal Ideation: No (No SI voiced) Homicidal Ideation: No (No HI voiced) Insight: Poor Judgment: Poor Results Vitals/IOs Vital Signs Date Time Temp Pulse Resp B/P (MAP) Pulse Ox O2 Delivery O2 Flow Rate FiO2 03/30/18 06:00 97.0 63 16 142/73 (96) 97 Intake and Output 03/30/18 03/30/18 03/31/18 08:00 16:00 00:00 Intake Total 360 ml Balance 360 ml Assessment & Plan Problem List: (1) Dementia of Alzheimer's type with behavioral disturbance ICD Codes: G30.9 - Alzheimer's disease, unspecified; F02.81 - Dementia in other diseases classified elsewhere with behavioral disturbance (2) Depressive disorder ICD Codes: F32.9 - Major depressive disorder, single episode, unspecified Assessment & Plan Estimated LOS: days Justification for Cont. Inpt. Moving patient to a lower level of care may result in his decompensation. Discharge planning is in progress. Request HC Surrog/Guard Advoc?: Yes Problem Qualifiers (1) Dementia of Alzheimer's type with behavioral disturbance: Qualified Codes: G30.8 - Other Alzheimer's disease; F02.81 - Dementia in other diseases classified elsewhere with behavioral disturbance Jerri Mccain March 30, 2018 09:23
[2018-03-30 12:55] VITALS: BP 154/68; PULSE 71
[2018-03-30] MEDS: hydrALAZINE HCL 25 MG TAB PO SCH ×2 (13:28→21:29)
[2018-03-30 17:29] VITALS: BP 129/63; PULSE 60; RESP 18; TEMP 97.3; O2SAT 98
[2018-03-30] MEDS: MIRTAZAPINE 15 MG TAB PO SCH (21:28)
[2018-03-30] MEDS: MELATONIN 5 MG TAB PO PRN (21:29)
[2018-03-31] MEDS: hydrALAZINE HCL 25 MG TAB PO SCH ×2 (06:00→14:58)
[2018-03-31 06:24] VITALS: BP 156/70; PULSE 50; RESP 18; TEMP 97.4; O2SAT 98
--- NOTE | 2018-03-31 08:06 | HHI.PR ---
Subjective Remarks Follow-up visit for HTN, RUBENS, on CKD. Spoke with nurse who does not report any acute events overnight or this morning, possibly discharging today. Patient is seen and examined sitting up in bed eating breakfast this morning in no acute distress. He denies any fevers, chills, nausea, vomiting, diarrhea, dizziness, cough or shortness of breath. Does have a complaint of a headache, similar to headaches he has had in the past. Objective Vitals Vital Signs Date Time Temp Pulse Resp B/P (MAP) Pulse Ox O2 Delivery O2 Flow Rate FiO2 03/31/18 06:24 97.4 50 18 156/70 (98) 98 03/30/18 17:29 97.3 60 18 129/63 (85) 98 03/30/18 12:55 71 154/68 (96) I/O 03/30/18 03/30/18 03/30/18 03/31/18 03/31/18 03/31/18 07:00 15:00 23:00 07:00 15:00 23:00 Intake Total 360 ml 1440 ml 360 ml Balance 360 ml 1440 ml 360 ml Intake Oral 360 ml 1440 ml Oral Supplement 360 ml # Voids 0 3 Result Diagram: 03/28/18 0729 Imaging Last Impressions Renal Ultrasound 03/26/18 0000 Signed Impressions: Service Date/Time: Monday, March 26, 2018 11:37 - CONCLUSION: Parenchymal renal disease with hyperechoic renal cortex. No evidence of hydronephrosis, nephrolithiasis or suspicious lesions. Prostatomegaly Matthew Bennett MD Head CT 03/18/18 0000 Signed Impressions: Service Date/Time: Sunday, March 18, 2018 20:17 - CONCLUSION: 1. No acute intracranial abnormality seen. 2. 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 3. Suspected small vessel ischemic change in the white matter. Dereck Kaufman MD Objective Remarks GENERAL: This is a well-nourished, well-developed elderly male patient, in no apparent distress. Awake and alert. HEAD: Atraumatic. EYES: Pupils equal round. No scleral icterus. No injection or drainage. ENT: Nose without bleeding. Airway patent. NECK: Trachea midline. CARDIOVASCULAR: Regular rate and rhythm, 2/6 murmur, no gallops, or rubs. RESPIRATORY: Nonlabored. Clear to auscultation. Breath sounds equal bilaterally. No wheezes, rales, or rhonchi. GASTROINTESTINAL: Abdomen soft, non-tender, nondistended. Normoactive bowel sounds MUSCULOSKELETAL: Extremities without clubbing, cyanosis, or edema. NEUROLOGICAL: Awake and alert. Cranial nerves II through XII grossly intact. Motor and sensory grossly within normal limits. Normal speech. A/P Assessment and Plan 77yo male with PMHX significant for dementia, HTN, HLD and DM who was transferred from [facility] under a Rg act alleging that he threatened to shoot himself with a gun. Patient has been admitted to inpatient psychiatry and hospitalist services have been consulted for medical management. Dementia with behavioral disturbance -Management per psychiatric team Hypertension, fluctuates Started on Lisinopril with subsequent dry cough -Lisinopril DC'd,. -BP's fluctuates, but stable, continue hydralazine to 25 mg every 8 hours. Bradycardia, mild, asymptomatic EKG with sinus eduardo, QTc 447 -TSH WNL -Hydralazine for BP control -Asymptomatic HLD TG 152, Chol 223, LDL 157 -LFTs WNL. - Continue Lipitor 40mg daily -patient will need to follow up with PCP to have lipid profile redrawn in 6- 8 weeks ?DM, patient states he was previously on Metformin but was taken off HgbA1c 5.8 Hypoglycemia, am bS -blood sugars running mid to low 100s off of Metformin -Blood sugars stable ranging from 100-141. Accu-Cheks have been discontinued. CKD on RUBENS No baseline labs for comparison Creatinine 1.54, GFR 44, BUN 21 ([facility] in [place] labs completed 03/17) -avoid nephrotoxic agents. Metformin and lisinopril on hold -03/26 with worsening renal function. Creatinine 1.88, BUN 51, GFR 35. Mild hypokalemia at 5.1 -Suspect possible underlying chronic kidney disease along with dehydration is because of decreased renal function. -Renal/bladder ultrasound completed 03/26 reviewed parenchymal renal disease with hyperechoic renal cortex. No evidence of hydronephrosis, nephrolithiasis or suspected lesions. 6 mm cyst in right kidney noted per. - s/p IV hydration -Renal function 03/28, improved with BUN 34, creatinine 1.47, GFR 46, renal function close to his baseline, -Continue encouraging oral hydration, renal function appears to be back to baseline, check periodically as needed. Shoulder pain - Suspect OA, full ROM with no joint deformity, swelling, warmth or erythema noted - Tylenol PRN for pain DVT prophylaxis -patient is ambulatory Discussed with nurse. Discharge Planning Possible discharge to [place] today, can continue to have monitoring of renal function as well as hypertension while in [place]. Everardo Torres March 31, 2018 08:06
[2018-03-31] MEDS ORDERED: ATOR40TA16 PO (08:52)
[2018-03-31] MEDS ORDERED: CHOL1000 PO (08:52)
[2018-03-31] MEDS ORDERED: MIRTA15 PO (08:52)
--- NOTE | 2018-03-31 08:52 | HHI.DS ---
Psychiatry Discharge Summary Inpatient Psychiatric care?: Yes Advance Directive: Yes Mental Health AdvanceDirective: No Health Care Proxy: No Admission Admission Date March 17, 2018 at 15:46 Admission Diagnosis: (1) Dementia of Alzheimer's type with behavioral disturbance ICD Code: G30.9 - Alzheimer's disease, unspecified; F02.81 - Dementia in other diseases classified elsewhere with behavioral disturbance Brief History Mr. Jones is a 77-year-old male with a history of dementia who presents in transfer from [facility] under a Rg act alleging that he threatened to shoot himself with a gun. Documentation from outside hospital reviewed. Reviewing the electronic medical record, I note that this is patient' s first visit to [place].Patient seen and examined. Chart reviewed. Case discussed with nursing staff. Patient noted to have been no behavioral problem overnight. On my examination today, patient presents as confused. MOCA is 13/ 30 with prominent deficits in delayed recall, executive function, and language. On my examination today, patient reports that he pulled out a gun in the context of an argument with his . He denies threatening to shoot himself with it. He tells me that he "brought it out to see if she would calm down." He says that they were arguing because he believes that his is financially exploiting him. He believes that she has taken on the order of $1,000 within the last year. Unclear if this concern is reality based. I can elicit no delusions or potential delusions otherwise. He denies AVH. He denies suicidal or homicidal ideation. He does admit to feeling somewhat depressed lately secondary to his concerns about his . Along with low mood he describes some sleep and appetite disturbance as well as some feelings of hopelessness. I can elicit no hypomanic or manic symptoms. Remainder of the psychiatric ROS is negative. No acute physical complaints. Tobacco Use In Past 30 Days: No Tobacco Past 30 Days Alcohol Use: Monthly or Less Hospital Course Patient was admitted to a locked, inpatient psychiatric unit. General medical consultation was obtained. Appropriate precautions were in place throughout patient's hospital stay. Patient was seen and examined on the unit by psychiatry and also visited by counselor. Psychotropic medications were adjusted. Patient tolerated medication changes well without side effects. There was no evidence of any suicidality or homicidality on the inpatient unit. Collateral information was obtained from the patient's . In conjunction with , counselor has arranged for placement at assisted living facility. On the day of discharge: Patient seen and examined. Chart reviewed. Case discussed with nursing staff. No behavioral issues noted overnight. Case discussed with counselor. On my examination today, the patient is in good spirits. He denies any suicidal or homicidal ideation, intent or plan. I can elicit no depressive or hypomanic/manic symptoms. He denies any audiovisual hallucinations. I can elicit no delusional material. No side effects from medications. No physical complaints. Suicide and violence risk assessment on day of discharge both suggest lower imminent risk from mental illness has defined under the Rg act, and the patient's level of function is adequate for planned level of outpatient care. Patient is somewhat chronically unpredictable as a consequence of his dementia, but this would not be expected to improve further with longer psychiatric hospitalization. Patient has reached maximal benefit from this inpatient psychiatric hospital stay. He will be discharged to facility today with psychiatric follow-up as arranged by a counselor. Patient is also to follow up with primary care. Patient to return to psychiatric emergency room for any concerning psychiatric symptoms. Results Blood Pressure 156 / 70 Vital Signs Date Time Temp Pulse Resp B/P (MAP) Pulse Ox O2 Delivery O2 Flow Rate FiO2 03/31/18 06:24 97.4 50 18 156/70 (98) 98 Laboratory Results Test 03/18/18 05:59 Cholesterol Level 223 MG/DL (120-200) HDL Cholesterol 35.3 MG/DL (40.0-60.0) Hemoglobin A1c 5.8 % (4.3-6.0) LDL Cholesterol 157 MG/DL (0-99) Triglycerides Level 152 MG/DL (42-150) Summary of Procedures None done Imaging Last Impressions Renal Ultrasound 03/26/18 0000 Signed Impressions: Service Date/Time: Monday, March 26, 2018 11:37 - CONCLUSION: Parenchymal renal disease with hyperechoic renal cortex. No evidence of hydronephrosis, nephrolithiasis or suspicious lesions. Prostatomegaly Matthew Bennett MD Head CT 03/18/18 0000 Signed Impressions: Service Date/Time: Sunday, March 18, 2018 20:17 - CONCLUSION: 1. No acute intracranial abnormality seen. 2. 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 3. Suspected small vessel ischemic change in the white matter. Dereck Kaufman MD Pending results at discharge: No Medications # of Antipsychotic meds at D/C: 0 Approp Antipsych med options 1 - Minimum of three failed multiple trials of monotherapy. 2 - Documented plan to taper to monotherapy due to previous use of multiple meds OR cross-taper in progress at D/C. 3 - Documentation of augmentation of Clozapine. 4 - Justification other than those listed in allowable values 1-3, document here : Discharge Discharge Date: March 31, 2018 Discharge Diagnosis: (1) Dementia of Alzheimer's type with behavioral disturbance Diagnosis: Principal (Behavioral disturbance resolved) ICD Code: G30.9 - Alzheimer's disease, unspecified; F02.81 - Dementia in other diseases classified elsewhere with behavioral disturbance (2) Depressive disorder Diagnosis: Secondary (Stabilized) ICD Code: F32.9 - Major depressive disorder, single episode, unspecified Pt Condition on Discharge: Stable Discharge Disposition: ACLF/DAXA Discharge Instructions Diet Instructions: Heart Healthy Diet Activities you can perform: Weight Bearing as Lauren Scheduled Appointment: As per counselor's notes New Orders: BASIC METABOLIC PROF - 1 Week VITAMIN D,25-HYDROXY - 2 Months New Medications: Atorvastatin (Atorvastatin) 40 Mg Tab 40 MG PO DAILY for Cholesterol Management for 15 Days, #15 TAB 1 Refill Cholecalciferol (Gnp Vitamin D3 Extra Stre) 1,000 Unit Tab 1000 UNITS PO DAILY for Nutritional Supplement for 15 Days, TAB 1 Refill Hydralazine HCl (Hydralazine HCl) 25 Mg Tablet 25 MG PO Q8HR for Blood Pressure Management, #90 TAB 0 Refills Mirtazapine (Mirtazapine) 15 Mg Tab 15 MG PO HS for Mental Health for 15 Days, TAB 1 Refill Continued Medications: Aspirin (Aspirin) 81 Mg Chew 81 MG CHEW DAILY, TAB 0 Refills NS Gabapentin (Gabapentin) 300 Mg Cap 300 MG PO BID, #60 CAP 0 Refills NS Discontinued Medications: Aspirin/Caffeine (Bc Arthritis Powder Packet) 1,000 Mg-65 Mg Powd.pack 1000 Lisinopril (Lisinopril) 10 Mg Tab 10 MG PO DAILY, #30 TAB 0 Refills Metformin (Metformin) 500 Mg Tab 500 MG PO DAILY for Blood Sugar Management, #30 TAB 0 Refills With a meal Metoprolol Tartrate (Metoprolol Tartrate) 25 Mg Tab 12.5 MG PO BID, #30 TAB 0 Refills Nicotine Patch (Nicotine Patch) 21 Mg/24 Hr Patch 21 MG T-DERMAL DAILY for Smoking Cessation, #30 PATCH 0 Refills Discharge Time <= 30 minutes Mental Status Examination Appearance: Appropriate Consciousness: Alert Orientation: Person Motor Activity: Other (No motoric abnormalities noted) Speech: Unremarkable Language: Adequate Fund of Knowledge: Inadequate Attention and Concentration: Other (Fair at best) Memory: Impaired Mood: Appropriate, Good Affect: Appropriate Thought Process & Associations: Circumstantial Thought Content: Other (Some poverty of thought) Hallucination Type: None Delusion Type: None Suicidal Ideation: No Suicidal Plan: No Suicidal Intention: No Homicidal Ideation: No Homicidal Plan: No Homicidal Intention: No Insight: Poor Judgment: Poor Discharge/Advance Care Plan Health Problems: (1) Dementia of Alzheimer's type with behavioral disturbance (2) Depressive disorder Goals to promote your health * To prevent worsening of your condition and complications * To maintain your health at the optimal level Directions to meet your goals Take your medications as prescribed Follow your dietary instruction Follow activity as directed Keep your appointments as scheduled Take your immunizations and boosters as scheduled If your symptoms worsen call your PCP, if no PCP go to Urgent Care Center or Emergency Room For 03/06 questions related to your inpatient stay or results of tests pending at discharge, please contact Dr. João Mcknight at Smoking is Dangerous to Your Health. Avoid second hand smoking Problem Qualifiers (1) Dementia of Alzheimer's type with behavioral disturbance: Qualified Codes: G30.8 - Other Alzheimer's disease; F02.81 - Dementia in other diseases classified elsewhere with behavioral disturbance João Mcknight MD March 31, 2018 08:52
[2018-03-31] MEDS: ASPIRIN 81 MG CHEW TAB CHEW SCH (10:16)
[2018-03-31] MEDS: GABAPENTIN 300 MG CAP PO SCH (10:17)
[2018-03-31] MEDS: ATORVASTATIN 40 MG TAB PO SCH (10:17)
[2018-03-31] MEDS: CHOLECALCIFEROL (VIT D3) 1000 UNIT TAB PO SCH (10:17)
[2018-03-31] MEDS ORDERED: HYDR-3799 PO (11:33)
[2018-03-31 14:58] VITALS: BP 136/74; PULSE 76
== END 2018-03-31 15:15 | DRG 57 ==
LOC: H260 15:46 → H4EA 03-26 12:15
PROVIDERS: ADMIT Psychiatry & Neurology Psychiatry; ATTEND Psychiatry & Neurology Psychiatry
DX: G30.9 Alzheimer's disease, unspecified (principal); F02.81 Dementia in other diseases classified elsewhere, unspecified severity, with behavioral disturbance; N17.9 Acute kidney failure, unspecified; E11.22 Type 2 diabetes mellitus with diabetic chronic kidney disease; F32.9 Major depressive disorder, single episode, unspecified; E11.649 Type 2 diabetes mellitus with hypoglycemia without coma; Z79.84 Long term (current) use of oral hypoglycemic drugs; R00.1 Bradycardia, unspecified; N28.1 Cyst of kidney, acquired; E86.0 Dehydration; E78.5 Hyperlipidemia, unspecified; I12.9 Hypertensive chronic kidney disease with stage 1 through stage 4 chronic kidney disease, or unspecified chronic kidney disease; N18.9 Chronic kidney disease, unspecified; Z79.82 Long term (current) use of aspirin; H91.90 Unspecified hearing loss, unspecified ear; M25.519 Pain in unspecified shoulder
CPT/HCPCS: 70450; 76775; 80048; 80061; 80076; 82140; 82306; 82607; 82746; 82948; 83036; 84443; 86592; 86703; 93005; J7030